=== PATIENT | male | born 1955 | race Caucasian/White ===

== ENCOUNTER → 2020-08-16 10:20 | Outpatient (BNVA) | payer OTHER, SELFPAY | PROVIDERS: PCP Family Medicine; Visit Provider Internal Medicine Cardiovascular Disease | DX: Z76.89 Persons encountering health services in other specified circumstances (principal) ==

== ENCOUNTER → 2020-10-20 10:12 | Outpatient (BNVA) | payer OTHER, SELFPAY | PROVIDERS: PCP Family Medicine; Visit Provider Student in an Organized Health Care Education/Training Program ==

== ENCOUNTER 2020-11-08 10:59 | Outpatient (REF) | payer OTHER, SELFPAY ==
--- NOTE | ~2020-11-08 | XR_ITS ---
EXAMINATION: XR KNEE, LEFT CLINICAL INFORMATION: Unilateral primary osteoarthritis of the left knee COMPARISON: None TECHNIQUE: Four views of the left knee. This includes AP upright view. FINDINGS: No fracture or subluxation. Mild narrowing of the medial and patellofemoral compartments. Tricompartmental marginal osteophytes are present. Prominent enthesophyte formation of the patella. Small to moderate suprapatellar joint effusion. Scattered vascular calcifications. XR/XR knee LT 3V IMPRESSION: Mild tricompartmental degenerative changes. Small to moderate joint effusion.
[2020-11-08 12:20] LABS: Alanine Aminotransferase 27 U/L (0-40); Albumin Level 4.3 g/dL (3.5-5.0); Alkaline Phosphatase 50 U/L (39-117); Aspartate Amino Transferase 23 U/L (5-37); Bilirubin Total 0.5 mg/dL (0.0-1.0); Blood Urea Nitrogen 18 mg/dL (9-16); Calcium 9.7 mg/dL (8.4-10.2); Estimated Glomerular Filt Rate > 60; Glucose Random 111 mg/dL (60-115); Total Protein 7.2 g/dL (6.5-8.0); Uric Acid 5.3 mg/dL (3.4-7.0)
[2020-11-08 12:33] LABS: Anion Gap 12 (12-20); Carbon Dioxide 29 mmol/L (22-29); Chloride 103 mmol/L (96-108); Potassium 4.2 mmol/L (3.3-5.1); Sodium 140 mmol/L (135-145)
== END 2020-11-08 11:00 | disposition home or self-care (01) ==
LOC: HO.LAB 10:59
PROVIDERS: PCP Physician Assistant Medical; Visit Provider Student in an Organized Health Care Education/Training Program
DX: M17.12 Unilateral primary osteoarthritis, left knee (principal); M10.9 Gout, unspecified
CPT/HCPCS: 36415; 73562; 80053; 84550

== ENCOUNTER 2020-11-17 15:00 | Outpatient (RCR) | payer OTHER, SELFPAY ==
--- NOTE | 2020-11-03 12:22 | MHC.PT.EP ---
[facility] [place] Office [place] Office [place] Office [address] Kaye Manzano [address] [phone] F: [phone] F: [phone] F: [phone] F: [phone] Physical Therapy Plan of Care Date of Evaluation: 11/03/20 Date of Surgery: Diagnosis: UNILATERAL OA LEFT KNEE Assessment: 64 YO MALE REF TO PT FOR Lt MEDIAL KNEE OA - OF IMPORTANCE, HE HAS A H/O LOW HEART RATE AND AF W PACEMAKER AND IS TAKING ELIQUIS ANTI-COAG MED. Pt HAS TENDERNESS W PALP Lt PES ANSERINE AND MEDIAL Lt KNEE Jt LINE. HE HAS TERMNAL KNEE EXTEN DEFICITS CONCHIS (Lt > Rt), DECR CONCHIS HIP AND HS FLEXIB, AND SOME WEAKNESS IN Lt QUAD/ GLUTE MM GROUPS. HE HAS (+) PELVIC ASYMM DUE TO HABITUAL WT SHIFT Rt- FUNCTIONAL LIMITATIONS INCLUDE STANDING < 10 MIN, LIMITED IN AND OUT OF CAR, DECR AMB EDUARDA AND (+) Lt KNEE SXS W QUICK CHANGE IN DIRECTION. Pt HAS REQUESTED PT 1x WEEK DUE TO COVID CONCERNS. Frequency and Duration: The patient will be seen 1x WK x 4 WKS (Pt REQUEST) Short Term Goals: DECR Lt MEDIAL KNEE PAIN TO A 2-3/10 AT MAX IN 2 WKS IMPROVE Lt>Rt HIP / HS FLEXIB AND KNEE TERMINAL EXTEN CONCHIS IN 2 WKS [place] Goals: Pt INDEP W HEP FOR ROM AND STRENGTHENING AND SELF-SX MGMT TECHN IN 4 WKS Pt REPORTS IMPROVED FUNCT MOB/ADL EDUARDA EVIDENT W IMPROVED LEFT SCORE BY 10 POINTS (39/80 AT EVAL) IN 4 WKS Treatment Plan: Modalities to reduce pain, spasms and effusion. Manual therapy to restore motion and function. Therapeutic exercise to improve strength and flexibility. Neuromuscular re-education for posture and balance. Therapeutic activities to return to functional activities of daily living. Electronically signed by: Kika Birmingham PT Please sign and return to therapist. Thank you for your referral.
--- NOTE | 2020-12-01 15:54 | MHC.PT.DC ---
[facility] Office [place] Office [place] Office [address] Kaye Manzano [address] [phone] F: [phone] F: [phone] F: [phone] F: [phone] Physical Therapy Discharge Report Diagnosis: UNILATERAL OA LEFT KNEE Date of Surgery: Date of Evaluation: 11/03/20 Date of Discharge: 12/01/20 Treatments to Date: 3 Cancellations to Date: 0 No Shows to Date: 0 Discharge Status: Achieved Goals Improved Function Independent with HEP Discharge Summary: Pt MET PT GOALS- MOST IMPORTANTLY, PAIN HAS REDUCED AND HIS FUNCTIONAL MOBILITY HAS SIGNIF IMPROVED- Pt NOTES HE SLEEPS BETTER AND HAS BEEN ABLE TO PERFORM ADLs W/O PAIN LIMITING HIM. Pt IS COMPLIANT W HEP AND IS READY TO CONT ON HIS OWN. Pt IS IN FULL AGREEMENT W D/C AT THIS TIME. Electronically signed by: Kika Birmingham, PT Please sign and return to therapist. Thank you for your referral.
== END 2020-12-01 15:55 | disposition other institution (70) ==
LOC: HO.PTCHIC 15:00
PROVIDERS: PCP Family Medicine; Visit Provider Student in an Organized Health Care Education/Training Program
DX: M17.12 Unilateral primary osteoarthritis, left knee (principal); M19.011 Primary osteoarthritis, right shoulder
CPT/HCPCS: 97110; 97162

== ENCOUNTER → 2021-02-15 10:29 | Outpatient (BNVA) | payer OTHER, SELFPAY | PROVIDERS: PCP Physician Assistant Medical; Visit Provider Internal Medicine Cardiovascular Disease ==

== ENCOUNTER → 2021-08-12 09:16 | Outpatient (REF) | payer MEDICARE, OTHER, SELFPAY ==
--- NOTE | 2021-08-12 09:26 | CA_ITS ---
Transthoracic Echocardiogram Patient (Last, First, Middle): Eric Brito M Gender: Male Date of : 1955 Age: 65 Procedure Date: 08/12/2021 Procedure Type: Transthoracic Echocardiogram Location: OP Height: 185.42 cm Weight: 137.89 kg BSA: 2.57 m2 Heart Rate: bpm BP: 134 / 85 mmHg Stain Wiper: Referring MD: Blake Villarreal MD Symptoms: I48.0 - Paroxysmal atrial fibrillation Study Quality: Fair ECG Rhythm: Sinus Conclusions: - Normal left ventricular size and systolic function. - Diastolic function is normal for age. - Normal right ventricular cavity size and systolic function. - Moderately elevated right atrial pressure. There is no evidence of pulmonary hypertension. - There is mild dilatation of the ascending aorta measuring 3.70 cm. Findings Left Ventricle Normal left ventricular size and systolic function. There is moderately increased left ventricular wall thickness. The visually estimated ejection fraction is between 55-60%. There is no evidence of regional wall motion abnormalities. Diastolic function is normal for age. Right Ventricle Normal right ventricular cavity size and systolic function. There is a pacemaker wire seen in the right ventricle. Atria The left atrium is mildly dilated. Aortic Valve Normal aortic valve structure and function. There is no aortic valve stenosis. There is no aortic valve regurgitation. Mitral Valve Normal mitral valve structure and function. There is no mitral valve regurgitation. There is no mitral valve stenosis. Pulmonic Valve The pulmonic valve is likely normal. Tricuspid Valve Normal tricuspid valve structure and function. There is no tricuspid valve regurgitation. Moderately elevated right atrial pressure. There is no evidence of pulmonary hypertension. Great Vessels There is mild dilatation of the ascending aorta measuring 3.70 cm. Venous The inferior vena cava is normal in size and collapses greater than 50% with inspiration. Pericardium/Pleural There is no evidence of pericardial effusion. Prior Study Comparison Changes noted compared to prior study dated: 02/16/2020. Moderately increased left ventricular wall thickness. Measurements 2D Linear Measurements IVSd: 1.34 0.6-0.9/0.6-1.0 cm LVIDd: 5.18 3.9-5.3/4.2-5.9 cm LVIDd Index: 2.02 2.4-3.2/2.2-3.1 cm/m2 LVIDs: 3.13 2.0-3.6 cm LVPWd: 1.34 0.7-1.1 cm Ao Root: 3.30 2.1-3.5 cm LA Diam: 4.60 2.7-3.8/3.0-4.0 cm LAIDs Index: 1.79 1.5-2.3 cm/m2 LV Mass: 360.46 67-162/88-224 g LV Mass Index: 140.26 43-95/49-115 g/m2 LVOT Diam: 2.40 3.0+(-)1.3 cm 2D Systolic Function EF 4C: 52.40 >55% EF 2C: 52.30 >55% EF BiP: 53.00 >55% Mitral Valve MV Pk E: 0.80 MV PK A: 0.70 MV Decel Time: 237.00 E/A: 1.10 E'Lateral: 11.40 E'Medial: 7.40 E/E' Med: 10.80 E/E' Lat: 7.00 PHT: 69.00 MVA PHT: 3.19 Decel [place]: 3.36 Aortic Valve AoV Pk Bharat: 1.75 AoV Mn Bharat: 1.09 AoV VTI: 0.39 AoV Pk Grad: 12.00 Aov Mn Grad: 6.00 DENA Cont.VTI: 2.87 LVOT LVOT Pk Bharat: 1.04 LVOT Mn Bharat: 0.67 LVOT VTI: 0.25 LVOT Pk Grad: 4.00 LVOT Mn Grad: 2.00 LVOT Diam: 2.40 LVOT Area: 4.52 Diastolic Function MV Pk E: 0.80 MV Pk A: 0.70 E/A: 1.10 E'Medial: 7.40 E/E' Med: 10.80 E' Laterial: 11.40 E/E' Lat: 7.00 Right Ventricle TAPSE (mm): 36.00 Tricuspid Valve TR Pk Bharat: 2.34 TR Pk Grad: 22.00 RVSP: 30.00 Great Vessels Aorta Ao Root-2D: 3.30 2.0-3.7 cm Ao Asc: 3.70 2.1-3.4 cm Pulmonary Valve PV Pk Bharat: 1.02 Peak PV Grad: 4.00 Updated in Other Vendor System with Status of Final Adal Peterson MD electronically signed on 08/14/2021 7:25:50 PM with status of Final
== END ==
LOC: HO.CARD 09:16
PROVIDERS: Visit Provider Internal Medicine Cardiovascular Disease
DX: I48.0 Paroxysmal atrial fibrillation (principal)
CPT/HCPCS: 93306

== ENCOUNTER → 2021-09-12 14:10 | Outpatient (BNVA) | payer MEDICARE, OTHER, SELFPAY | PROVIDERS: PCP Physician Assistant Medical; Visit Provider Internal Medicine Cardiovascular Disease | DX: Z45.018 Encounter for adjustment and management of other part of cardiac pacemaker (principal); I48.0 Paroxysmal atrial fibrillation | CPT/HCPCS: 99212 ==

== ENCOUNTER → 2022-03-02 09:16 | Outpatient (BNVA) | payer MEDICARE, OTHER, SELFPAY | PROVIDERS: PCP Physician Assistant Medical; Visit Provider Internal Medicine Cardiovascular Disease | DX: Z45.018 Encounter for adjustment and management of other part of cardiac pacemaker (principal); I48.0 Paroxysmal atrial fibrillation; I10 Essential (primary) hypertension | CPT/HCPCS: 93280; 99212 ==

== ENCOUNTER → 2022-08-17 12:42 | Outpatient (BNVA) | payer MEDICARE, OTHER, SELFPAY | PROVIDERS: PCP Student in an Organized Health Care Education/Training Program; Visit Provider Internal Medicine Cardiovascular Disease | DX: Z45.018 Encounter for adjustment and management of other part of cardiac pacemaker (principal); I48.0 Paroxysmal atrial fibrillation; I10 Essential (primary) hypertension | CPT/HCPCS: 93280; 99212 ==

== ENCOUNTER → 2022-08-30 11:31 | Outpatient (BNVA) | payer MEDICARE, OTHER, SELFPAY | PROVIDERS: PCP Student in an Organized Health Care Education/Training Program; Visit Provider Internal Medicine Cardiovascular Disease | DX: Z13.89 Encounter for screening for other disorder (principal) ==

== ENCOUNTER 2022-09-15 05:55 | Day surgery (SDC) | payer MEDICARE, OTHER, SELFPAY ==
--- NOTE | 2022-09-14 11:55 | HO.ANESPROP2 ---
Documented by User: Laura Mackenzie NP 09/14/22 11:57 HPI - Anesthesia Eval Consult details Narrative: 66yo M for Pacemaker Generator Change Pacer for sick sinus Eliquis for PAF PMFSH Active Problems Active Problems: All Active Problems (Updated 09/12/22 @ 12:30 by Thelma Mcnulty RN) Osteoarthritis of right shoulder (Acute) Primary osteoarthritis of left knee (Acute) Knee pain, right (Acute) HTN (hypertension) (Acute) Gout (Acute) Morbid obesity (Acute) Obstructive sleep apnea (Acute) LVH (left ventricular hypertrophy) (Acute) Cardiac pacemaker in situ (Acute) Sick sinus syndrome (Acute) Paroxysmal atrial fibrillation (Acute) Past Medical History Medical History Asthma Bladder cancer Cardiac pacemaker in situ (~2012) Depression Gout HTN (hypertension) Hx of migraines Hyperlipidemia LVH (left ventricular hypertrophy) Morbid obesity Obstructive sleep apnea On anticoagulant therapy On beta leon at home Osteoarthritis Paroxysmal atrial fibrillation (~2012) Sick sinus syndrome (~2012) Family History Family History Father CVD (cardiovascular disease) Bladder cancer Mother HTN (hypertension) Arthritis Surgical History Surgical History History of biopsy History of cardioversion History of carpal tunnel release History of permanent cardiac pacemaker placement Hx of transesophageal echocardiography (TRINIDAD) for monitoring Hx of transurethral resection of prostate Social History Social History Alcohol intake: current Alcohol intake frequency: a few times a week Patient Tobacco Use Status: Former Tobacco user Quit Date: 1979 Tobacco use type: Cigarette Cigarette Packs Per Day: 1 Cigarettes Per Day: 20.0 Years Smoked: 7 Smoked in Last 30 Days: No Use of substances other than those prescribed or required for medical reasons: No Are you DNR?: No Advance Directives: No Advance Directives Information Provided: Yes Meds Allergies Allergy/AdvReac Type Severity Reaction Status Date / Time Sulfa (Sulfonamide Allergy Unknown HIVES, Verified 09/15/22 06:39 Antibiotics) unknown [SULFA (SULFONAMIDE (childbood) ANTIBIOTICS)] Home Medications Medication Instructions Recorded Confirmed Last Taken Type gabapentin 300 mg capsule 900 mg PO BEDTIME 02/17/21 01/13/23 Unknown History finasteride 1 mg tablet 1 mg PO DAILY 03/02/22 09/15/22 Unknown History lisinopril 20 mg tablet 20 mg PO DAILY 03/02/22 09/15/22 09/14/22 History sertraline 100 mg tablet 50 mg PO DAILY 03/02/22 09/15/22 Unknown History spironolactone 100 mg tablet 100 mg PO DAILY 03/02/22 09/15/22 09/14/22 History tadalafil 5 mg tablet 5 mg PO DAILY PRN Sexual Activity 03/02/22 09/15/22 Unknown History estradiol 0.075 mg/24 hr 1 patch topical 2XW 08/17/22 09/15/22 Unknown History semiweekly transdermal patch semaglutide 0.25 mg or 0.5 mg (2 0.5 mg subcut QWEEK 08/17/22 09/15/22 Unknown History mg/1.5 mL) subcutaneous pen injector ([employer]) progesterone micronized 100 mg 1 cap PO BEDTIME 09/15/22 09/15/22 09/15/22 History capsule Exam Exam Date and Time: September 14, 2022 1155 Narrative Narrative: Pacer Interr 08/2022 Cardiac Device Check Details: Dual-chamber [place] pacemaker in place.? Programmed in DDDR at 60 beats per minute.? Atrial pacing 70% of the time.? Increasing burden of atrial fibrillation longest episode lasting 2 hours and 56 minutes.? Symptoms during that time.? Minimal ventricular pacing.? Atrial ventricular pacing thresholds adequate.? Atrial ventricular sensing is adequate.? Pacing lead impedance is stable.? Battery is at [facility] ECHO 2020 Conclusions: - Normal left ventricular size and systolic function.? - Diastolic function is normal for age.? - Normal right ventricular cavity size and systolic function.? ? - Moderately elevated right atrial pressure.? There is no? evidence of pulmonary hypertension.? - There is mild dilatation of the ascending aorta measuring 3.70 cm.? Assessment and Plan Assessment Anesthesia Assessment: Chart Reviewed Documented by User: Kinza Gilliland MD 09/15/22 08:23 PMFSH Past Medical History Medical History Asthma Bladder cancer Cardiac pacemaker in situ (~2012) Depression Gout HTN (hypertension) Hx of migraines Hyperlipidemia LVH (left ventricular hypertrophy) Morbid obesity Obstructive sleep apnea On anticoagulant therapy On beta leon at home Osteoarthritis Paroxysmal atrial fibrillation (~2012) Sick sinus syndrome (~2012) Family History Family History Father CVD (cardiovascular disease) Bladder cancer Mother HTN (hypertension) Arthritis Family history of problems with anesthesia: No Surgical History Surgical History History of biopsy History of cardioversion History of carpal tunnel release History of permanent cardiac pacemaker placement Hx of transesophageal echocardiography (TRINIDAD) for monitoring Hx of transurethral resection of prostate History of Problems with Anesthesia: No Social History Social History Alcohol intake: current Alcohol intake frequency: a few times a week Patient Tobacco Use Status: Former Tobacco user Quit Date: 1979 Tobacco use type: Cigarette Cigarette Packs Per Day: 1 Cigarettes Per Day: 20.0 Years Smoked: 7 Smoked in Last 30 Days: No Use of substances other than those prescribed or required for medical reasons: No Are you DNR?: No Advance Directives: No Advance Directives Information Provided: Yes Meds Allergies Allergy/AdvReac Type Severity Reaction Status Date / Time Sulfa (Sulfonamide Allergy Unknown HIVES, Verified 09/15/22 06:39 Antibiotics) unknown [SULFA (SULFONAMIDE (childbood) ANTIBIOTICS)] Home Medications Medication Instructions Recorded Confirmed Last Taken Type gabapentin 300 mg capsule 900 mg PO BEDTIME 10/20/20 09/15/22 Unknown History finasteride 1 mg tablet 1 mg PO DAILY 03/02/22 09/15/22 Unknown History lisinopril 20 mg tablet 20 mg PO DAILY 03/02/22 09/15/22 09/14/22 History sertraline 100 mg tablet 50 mg PO DAILY 03/02/22 09/15/22 Unknown History spironolactone 100 mg tablet 100 mg PO DAILY 03/02/22 09/15/22 09/14/22 History tadalafil 5 mg tablet 5 mg PO DAILY PRN Sexual Activity 03/02/22 09/15/22 Unknown History estradiol 0.075 mg/24 hr 1 patch topical 2XW 08/17/22 09/15/22 Unknown History semiweekly transdermal patch semaglutide 0.25 mg or 0.5 mg (2 0.5 mg subcut QWEEK 08/17/22 09/15/22 Unknown History mg/1.5 mL) subcutaneous pen injector ([employer]) progesterone micronized 100 mg 1 cap PO BEDTIME 09/15/22 09/15/22 09/15/22 History capsule Exam Height,Weight and Vital Signs: Height 6 ft 2 in Weight 137.892 kg Vital Signs Temp Pulse Resp BP Pulse Ox O2 Del Method 09/15/22 06:25 97.3 F 71 16 130/49 L 97 Room Air Airway Mallampati Class: III TM Dist: >3cm Neck ROM: Limited (Limited extension) Loose/Missing/Broken Teeth: Yes (Chip bottom front, top back left. Missing bottom left, back right) Heart: RRR with some arrhythmia Lungs: CTAB Assessment and Plan Assessment Anesthesia Assessment: Anesthesia Plan Discussed Final Anesthetic Review Family History of Problems with Anesthesia: No History of Problems with Anesthesia: No NPO: Yes ASA Class: IV Final Preanesthetic Review: No Changes in Pt Med Stat, Meds/Allgs Chart Reviewed, Consent Obtained/Reviewed and Anes Risks/Benef Reviewed Patient Risk: Intermediate Procedure Risk: Intermediate Assessment/Block/Sedation in SS: Assess/Block/Sedation-SS Anesthetic Plan Anesthetic Plan: MAC: Disposition: Standard PACU
[2022-09-15 06:21] VITALS: BMI 39.0
[2022-09-15 06:25] VITALS: BP 130/49; PULSE 71; RESP 16; TEMP 36.3; O2SAT 97
--- NOTE | 2022-09-15 07:15 | MHC.SHP ---
Pre-Procedural Eval Section A Date of Service: 09/15/22 The patient is an INPATIENT: No The History & Physical has been completed within 30 days and I have reviewed it.: Yes Section B Chief Complaint: Encounter for adjustment and management of other p Allergies: Allergies Allergy/AdvReac Type Severity Reaction Status Date / Time Sulfa (Sulfonamide Allergy Unknown HIVES, Verified 09/15/22 06:39 Antibiotics) unknown [SULFA (SULFONAMIDE (childbood) ANTIBIOTICS)] Plan I have reviewed the history and physical and performed a pertinent physical examination on my patient. No changes have occurred unless specified. Time Spent With Patient Time: Total time managing care of this patient today ____ minutes.
[2022-09-15] MEDS: Lactated Ringers 1,000 ML 100 ML IVCONT (07:17)
--- NOTE | 2022-09-15 07:30 | MHC.SHP ---
Pre-Procedural Eval Section A Date of Service: 09/15/22 The History & Physical has been completed within 30 days and I have reviewed it.: Yes Section B Chief Complaint: Encounter for adjustment and management of other p Allergies: Allergies Allergy/AdvReac Type Severity Reaction Status Date / Time Sulfa (Sulfonamide Allergy Unknown HIVES, Verified 09/15/22 06:39 Antibiotics) unknown [SULFA (SULFONAMIDE (childbood) ANTIBIOTICS)] Plan I have reviewed the history and physical and performed a pertinent physical examination on my patient. No changes have occurred unless specified. dual pacer generator change today as planned. Time Spent With Patient Time: Total time managing care of this patient today ____ minutes.
--- NOTE | 2022-09-15 07:35 | PC.NURSE ---
Patients last dose of Eliquis 09/13. Dr. Verdugo aware. Okay to proceed with procedure.
--- NOTE | 2022-09-15 08:33 | P.OP_ITS ---
Operative Note Operative Note Date of Service: 09/15/22 Narrative: Preoperative diagnosis: Pacemaker end of life Postoperative diagnosis: Same Operation: Dual-chamber pacemaker generator change Surgeon: Ghazal Verdugo MD Anesthesia: Local with sedation Specimens: None EBL: Minimal Operative findings: The generator were removed was a [employer] with serial number [id number]. Pacemaker lead parameters were in the atrial lead threshold 0.5 volts at 0.5 milliseconds with a P-wave of 3.9 mV and impedance of 390 Ohms. In the ventricular lead threshold 0.625 volts at 0.5 milliseconds with an R-wave of 8.7 mV and impedance of 460 Ohms. Patient tolerated the procedure well. Operation in detail: The patient was brought the operating room, placed supine on the operative table, anesthesia monitoring devices were placed, and the patient was gently sedated. The left infraclavicular area was then prepped and draped in a standard sterile fashion and a time-out was performed confirming the correct patient, site, and procedure. After injection of local anesthetic, a 3 cm incision was made directly over the old pacemaker generator which was palpable. This was carried down with combination of sharp dissection and minimal electrocautery to open up the capsule at the generator was within. The generator was were then removed from its pocket and the leads were taken out of the receptacles and placed directly into the new generator. These leads were then tested and were working appropriately. The pocket was then copiously irrigated with antibiotic solution and the excess wire and generator were then placed back into the pocket. The wound was then closed with a deep running 3-0 Vicryl suture followed by running 3-0 Vicryl suture and Dermabond glue on the skin. Patient tolerated the procedure well. Patient was then awoken from anesthesia and brought to the recovery room in stable condition.
[2022-09-15 08:38] VITALS: BP 116/59; PULSE 78; RESP 16; TEMP 36.4; O2SAT 98
[2022-09-15 09:03] VITALS: BP 106/57; PULSE 66; RESP 16; TEMP 36.8; O2SAT 95
== END 2022-09-15 10:00 | disposition home or self-care (01) ==
PROVIDERS: PCP Student in an Organized Health Care Education/Training Program; Visit Provider Surgery
PROC: (CPT 33228; principal; 2022-09-15 07:30)
DX: Z45.018 Encounter for adjustment and management of other part of cardiac pacemaker (principal); R42 Dizziness and giddiness; I48.0 Paroxysmal atrial fibrillation; I51.7 Cardiomegaly; I49.5 Sick sinus syndrome; I10 Essential (primary) hypertension; E78.5 Hyperlipidemia, unspecified; G47.33 Obstructive sleep apnea (adult) (pediatric); J45.909 Unspecified asthma, uncomplicated; E66.01 Morbid (severe) obesity due to excess calories; Z68.39 Body mass index [BMI] 39.0-39.9, adult; Z79.01 Long term (current) use of anticoagulants; Z99.89 Dependence on other enabling machines and devices; Z79.899 Other long term (current) drug therapy; Z88.2 Allergy status to sulfonamides; Z85.51 Personal history of malignant neoplasm of bladder; Z87.891 Personal history of nicotine dependence
CPT/HCPCS: 33228; C1785; J0690; J2250; J3010; J3370

== ENCOUNTER → 2022-09-29 09:36 | Outpatient (BNVA) | payer OTHER, SELFPAY | PROVIDERS: PCP Student in an Organized Health Care Education/Training Program; Visit Provider Surgery | DX: Z13.89 Encounter for screening for other disorder (principal) ==

== ENCOUNTER 2022-10-19 09:38 | Inpatient (IN) | payer MEDICARE, SELFPAY ==
[2022-10-19] VITALS (7 sets, daily range): BP systolic 99–121; BP diastolic 42–57; PULSE 54–61; RESP 18–20; TEMP 36.3–36.8; O2SAT 94–100; BMI 38.5
--- NOTE | ~2022-10-19 | XR_ITS ---
EXAMINATION: XR CHEST CLINICAL INFORMATION: Possible infection COMPARISON: October 04, 2012 TECHNIQUE: AP portable view of the chest was obtained. FINDINGS: There is no evidence of acute parenchymal disease, pneumothorax, or pleural effusion. Heart normal size. No evidence of pulmonary edema. Pacemaker seen in place. XR/XR chest 1V IMPRESSION: No acute disease.
--- NOTE | ~2022-10-19 | CT_ITS ---
CT LUMBAR SPINE WITHOUT CONTRAST CLINICAL INFORMATION: Back pain. COMPARISON: None TECHNIQUE: A multidetector CT acquisition of the lumbar spine is obtained without contrast. This CT examination was performed using dose optimization techniques as appropriate, variously including the following: *Automated exposure control *Adjustment of mA and/or kV according to patient size (this includes techniques or standardized protocols for targeted exams where dose is matched to indication/reason for exam; i.e. extremities or head) *Use of iterative reconstruction technique FINDINGS: There is grade 2 spondylolytic anterolisthesis of L5 on S1 in the setting of chronic bilateral L5 pars defects. Lumbar alignment is otherwise maintained. The vertebral body heights are preserved. There is moderate to severe disc volume loss and vacuum phenomenon at L5-S1. Multilevel endplate osteophytes. No acute fractures and no acute subluxations. Hypertrophic ankylosis across the SI joints bilaterally. No suspicious intraosseous lesions. There are left-sided nephrectomy changes and there are multiple pathologic appearing enlarged lymph nodes within the retroperitoneum that should be correlated with prior abdominal imaging if available. If no prior imaging is available, consider PET/CT for further assessment as metastatic adenopathy is not excluded. There is aortoiliac atherosclerotic calcification. There is sigmoid diverticulosis. At T12-L1, there is a shallow left paracentral disc osteophyte protrusion that mildly indents the left ventral thecal sac. At L1-L2, there is a small annular disc bulge and there is mild bilateral facet arthropathy without central canal stenosis nor significant foraminal stenosis. At L2-L3, there is a diffuse annular disc bulge and there is moderate bilateral facet arthropathy and ligamentum flavum thickening resulting in suspected mild to moderate central canal stenosis, bilateral subarticular zone stenosis, and mild bilateral foraminal encroachment. At L3-L4, there is a diffuse annular disc bulge and there is severe bilateral facet arthropathy and ligamentum flavum thickening. Findings in concert result in suspected mild to moderate central canal stenosis, bilateral subarticular zone stenosis, and mild bilateral foraminal encroachment. At L4-L5, there is a diffuse annular disc bulge and there is severe bilateral facet arthropathy and ligamentum flavum thickening. Vacuum phenomenon within the facet joints bilaterally and the right ligamentum flavum. Findings in concert result in suspected mild narrowing of the central canal and mild to moderate bilateral foraminal encroachment. At L5-S1, there is grade 2 spondylolytic anterolisthesis of L5 on S1 in the setting of chronic bilateral L5 pars defects that along with uncovered disc osteophyte results in severe bilateral foraminal stenosis at L5-S1 with significant compression of the exiting L5 nerve roots bilaterally. CT/CT lumbar spine wo IV con IMPRESSION: * There are left-sided nephrectomy changes and there are multiple pathologic appearing enlarged lymph nodes within the retroperitoneum that should be correlated with prior abdominal imaging if available. If no prior imaging is available, consider PET/CT for further assessment as metastatic adenopathy is not excluded. * At L5-S1, there is grade 2 spondylolytic anterolisthesis of L5 on S1 in the setting of chronic bilateral L5 pars defects that along with uncovered disc osteophyte results in severe bilateral foraminal stenosis at L5-S1 with significant compression of the exiting L5 nerve roots bilaterally. * At L4-L5, multifactorial degenerative changes result in mild to moderate bilateral foraminal encroachment. Advanced bilateral hypertrophic facet arthropathy and facet vacuum phenomenon bilaterally at this level. * At L3-L4, multifactorial degenerative changes result in suspected at least mild to moderate central canal stenosis, bilateral subarticular zone stenosis, and mild bilateral foraminal encroachment. Advanced bilateral hypertrophic facet arthropathy at this level. * At L2-L3, multifactorial degenerative changes result in suspected at least mild to moderate central canal stenosis, bilateral subarticular zone stenosis, and mild bilateral foraminal encroachment. * MRI would be more sensitive if not contraindicated given the degree of artifact on CT.
--- NOTE | 2022-10-19 10:25 | ED.BACK ---
HPI - Back Pain/Injury General Chief Complaint: Back Pain/Injury Stated Complaint: R BACK DOWN LEG PAIN SINCE LAST NIGHT Time Seen by Provider: 10/19/22 10:08 Source: patient Mode of arrival: EMS Limitations: no limitations History of Present Illness HPI Narrative: 66-year-old male presents with low back pain. The pain is chronic in nature but exacerbated over the last 3 days. The pain is described as severe. It is sharp. It radiates to the right lower extremity. Patient has chronic lateral bilateral leg numbness but that has not changed. He denies any focal weakness. Patient denies any new falls, twists, heavy lifting, saddle paresthesia, loss of bowel or bladder control. Denies intravenous drug abuse or fevers. Denies any urinary frequency, urgency, dysuria, hematuria. Related Data Home Medications Medication Instructions Recorded Confirmed gabapentin 300 mg capsule 900 mg PO BEDTIME 10/20/20 09/29/22 finasteride 1 mg tablet 1 mg PO DAILY 03/02/22 09/29/22 lisinopril 20 mg tablet 20 mg PO DAILY 03/02/22 09/29/22 sertraline 100 mg tablet 50 mg PO DAILY 03/02/22 09/29/22 estradiol 0.075 mg/24 hr 1 patch topical 2XW 08/17/22 09/29/22 semiweekly transdermal patch semaglutide 0.25 mg or 0.5 mg (2 0.5 mg subcut QWEEK 08/17/22 09/29/22 mg/1.5 mL) subcutaneous pen injector (Ozempic) progesterone micronized 100 mg 1 cap PO BEDTIME 09/15/22 09/29/22 capsule lidocaine-prilocaine 2.5 %-2.5 % 1 appl topical TID 10/19/22 topical cream oxycodone 5 mg tablet 10 mg PO Q8H PRN Severe Pain 10/19/22 (Scale Score 7-10) spironolactone 50 mg tablet 50 mg PO DAILY 10/19/22 Previous Rx's Medication Instructions Recorded allopurinol 300 mg tablet 300 mg PO DAILY #90 tabs 03/25/21 metoprolol succinate 50 mg 50 mg PO DAILY #90 tabs 10/10/21 tablet,extended release 24 hr apixaban 5 mg tablet 5 mg PO BID 90 days #180 tabs 11/16/21 simvastatin 10 mg tablet 10 mg PO BEDTIME #90 tabs 08/17/22 Allergies Allergy/AdvReac Type Severity Reaction Status Date / Time Sulfa (Sulfonamide Allergy Unknown HIVES, Verified 09/29/22 10:13 Antibiotics) unknown [SULFA (SULFONAMIDE (childbood) ANTIBIOTICS)] Review of Systems Review of Systems: CONSTITUTIONAL: Denies weight loss, fever and chills. HEENT: Denies changes in vision and hearing. RESPIRATORY: Denies SOB and cough. CV: Denies palpitations no CP. GI: Denies abdominal pain, nausea, vomiting and diarrhea. : Denies dysuria and urinary frequency. MSK: Denies myalgia and joint pain. Positive back pain SKIN: Denies rash and pruritus. NEUROLOGICAL: Denies headache and syncope. PSYCHIATRIC: Denies recent changes in mood. Denies anxiety and depression. All other ROS are negative unless in HPI [facility] Past Medical History Medical History Asthma Bladder cancer Cardiac pacemaker in situ (~2012) Depression Gout HTN (hypertension) Hx of migraines Hyperlipidemia LVH (left ventricular hypertrophy) Morbid obesity Obstructive sleep apnea On anticoagulant therapy On beta leon at home Osteoarthritis Paroxysmal atrial fibrillation (~2012) Sick sinus syndrome (~2012) Surgical History History of biopsy History of cardioversion History of carpal tunnel release History of permanent cardiac pacemaker placement Hx of transesophageal echocardiography (TRINIDAD) for monitoring Hx of transurethral resection of prostate Family History Family History Father CVD (cardiovascular disease) Bladder cancer Mother HTN (hypertension) Arthritis Social History Social History Alcohol intake: current Alcohol intake frequency: does not drink Patient Tobacco Use Status: Former Tobacco user Quit Date: 1979 Tobacco use type: Cigarette Cigarette Packs Per Day: 1 Cigarettes Per Day: 20.0 Years Smoked: 7 Smoked in Last 30 Days: No Advance Directives: Yes Advance Directives Information Provided: No Advance Directives on File: No Physical Exam Vital Signs: Vital Signs: Last Vital Signs Temp 98.3 F 10/19/22 09:57 Pulse 54 10/19/22 12:04 Resp 20 10/19/22 12:04 BP 117/42 L 10/19/22 12:04 Pulse Ox 100 10/19/22 10:00 O2 Del Method 10/19/22 10:00 BMI result Body Mass Index 38.5 GEN: Well developed, no acute distress, alert, oriented HEENT: Normocephalic, atraumatic, normal external ears, nose appears normal, no oropharyngeal edema or exudates Eyes: Normal to appearance Neck: Supple, no lymphadenopathy Respiratory: Talks in complete sentences, no respiratory distress, clear to auscultation bilaterally Cardiovascular: Regular rate and rhythm, no murmurs rubs or gallops Abdomen: Soft, nontender, nondistended, no guarding, no rebound Back: No CVA tenderness Extremities: No clubbing cyanosis or edema Neurologic: No focal neurologic deficits, cranial nerves 2-12 intact, strength is 5/5 bilaterally, gait normal Skin: No rash Course Course Course Narrative: 66-year-old male presents with low back pain. Brought in by EMS. The pain is right-sided. Radiates down his right leg suggestive of a lumbar radiculopathy. He has no focal weakness. He does have a slightly positive right straight leg raise, negative on the left. Patient does not have any saddle paresthesia, loss of bowel or bladder control suggest acute cauda equina syndrome. He has no midline tenderness, deformity, fever intravenous drug use to suggest epidural abscess. Suspect pinched nerve causing his radicular symptoms. Will treat with intravenous steroids, Toradol, muscle relaxants re-evaluate the patient. He can likely follow up as an outpatient with MRI if needed Reevaluation(s) Reevaluation #1: Patient with continued intractable back pain. Will try Dilaudid. Will order labs COVID swab in the eventuality patient may require hospitalization for pain management. Time: 11:53 Reevaluation #2: Patient is feeling much better at this time. Will try to ambulate the patient to see the appropriateness for discharge versus short-term rehabilitation. Reevaluation #3: Patient has no elevated white blood cell count, left shift as well as hyperkalemia of unclear etiology. Will check an EKG to make sure there are no EKG changes. Will also get urinalysis to rule out UTI. Will order a chest x-ray although cardiopulmonary exam was unremarkable. Time: 13:36 Additional Reevaluation(s): Treating hyperkalemia at this time with albuterol, his potassium binders, dextrose with insulin. Will talk with hospitalist regarding admission. This 240, will admit patient to the imaging care unit. He has acute kidney injury with hyperkalemia which is currently in the process of being treated. He also has an elevated white blood cell count which could be a leukemoid reaction. He has intractable pain with radiculopathy. Consultations Consultation #1: Hospitalist Time: 14:14 Medications Administered Discontinued Medications Generic Name Dose Route Start Last Admin Trade Name Crowq PRN Reason Stop Dose Admin Acetaminophen 975 mg 10/19/22 10:20 10/19/22 10:41 Acetaminophen 325 Mg Tablet PO 10/19/22 10:21 975 mg ONCE ONE Administration Cyclobenzaprine HCl 10 mg 10/19/22 10:20 10/19/22 10:41 Cyclobenzaprine Hcl 10 Mg Tablet PO 10/19/22 10:21 10 mg ONCE ONE Administration Dexamethasone Sodium Phosphate 10 mg 10/19/22 10:20 10/19/22 10:41 Dexamethasone Sod Phosphate 10 Mg/Ml Vial IVPUSH 10/19/22 10:21 10 mg ONCE ONE Administration Hydromorphone HCl 1 mg 10/19/22 11:52 10/19/22 12:03 Hydromorphone Hcl 1 Mg/Ml Syringe IVPUSH 10/19/22 11:53 1 mg ONCE ONE Administration Protocol Ketorolac Tromethamine 15 mg 10/19/22 10:20 10/19/22 10:40 Ketorolac Tromethamine 15 Mg/Ml Vial IVPUSH 10/19/22 10:21 15 mg ONCE ONE Administration Medical Decision Making Medical Decision Making MDM Narrative: 66-year-old male with right lumbar radiculopathy. This is acute on chronic. This is nontraumatic. There is no evidence of acute cauda equina syndrome or epidural abscess. There is no emergent indication for MRI at this time. Doubt x-ray will be of assistance at this time. Will provide patient with appropriate analgesics, muscle relaxer and re-evaluate the patient. Differential Diagnosis Differential Diagnoses: The differential diagnosis associated with the presentation includes (Lumbar radiculopathy, pinched nerve, spinal stenosis, epidural abscess, cauda equina syndrome) Lumbar radiculopathy Admission/Observation Consideration of admission/observation: Escalation of care including admission/observation considered Lab Data 10/19/22 12:42 10/19/22 12:42 Labs: Lab Results 10/19/22 10/19/22 10/19/22 Range/Units 12:42 12:42 12:42 WBC 12.5 H (4.8-10.8) X10*3/uL RBC 3.25 L (4.60-5.80) X10*6/uL Hgb 10.3 L (14.0-18.0) g/dl Hct 32.0 L (42.0-52.0) % MCV 98.5 H (80.0-98.0) fL MCH 31.7 (27.0-33.0) pg MCHC 32.2 (31.0-36.0) g/dl RDW 13.5 (11.0-16.0) % Plt Count 296 (160-400) X10*3/uL MPV 10.6 (9.4-12.4) fL Immature Gran % (Auto) 0.4 (0.0-0.4) % Neut % (Auto) 88.4 H (45-73) % Lymph % (Auto) 6.2 L (20-40) % [place] % (Auto) 2.3 (2-11) % Eos % (Auto) 2.5 (0-4) % Baso % (Auto) 0.2 (0-2) % Lymph # (Auto) 0.8 L (1.2-4.9) X10*3/uL [place] # (Auto) 0.3 (0.1-1.2) X10*3/uL Eos # (Auto) 0.3 (0.0-0.4) X10*3/uL Baso # (Auto) 0.0 (0.0-0.2) X10*3/uL Abs Immat Gran (auto) 0.05 H (0.00-0.03) X10*3/uL Absolute Neuts (auto) 11.1 H (2.0-8.3) x10*3/uL Absolute Nucleated RBC 0.000 (0.0-0.012) X10*3/uL Nucleated RBC % (auto) 0.0 (0.0-0.2) /100WBC Sodium 138 (135-145) mmol/L Potassium 5.8 H D (3.3-5.1) mmol/L Chloride 110 H (96-108) mmol/L Carbon Dioxide 21 L (22-29) mmol/L Anion Gap 13 (12-20) BUN 28 H (9-16) mg/dL Creatinine 1.89 H (0.5-1.4) mg/dL Estim Creat Clear Calc 55.6 Estimated GFR 36 Random Glucose 117 H (60-115) mg/dL Calcium 9.7 (8.4-10.2) mg/dL Urine Color Urine Appearance Urine pH (5.0-9.0) Ur Specific [place] (1.005-1.025) Urine Protein (Neg-Trace) mg/dL Urine Glucose (UA) (Negative) mg/dL Urine Ketones (Negative) mg/dL Urine Blood (Negative) Urine Nitrite (Negative) Ur Leukocyte Esterase (Negative) COVID-19 (LUIS ENRIQUE) Negative (Negative) COVID-19 Clin Com See Note 10/19/22 Range/Units 14:05 WBC (4.8-10.8) X10*3/uL RBC (4.60-5.80) X10*6/uL Hgb (14.0-18.0) g/dl Hct (42.0-52.0) % MCV (80.0-98.0) fL MCH (27.0-33.0) pg MCHC (31.0-36.0) g/dl RDW (11.0-16.0) % Plt Count (160-400) X10*3/uL MPV (9.4-12.4) fL Immature Gran % (Auto) (0.0-0.4) % Neut % (Auto) (45-73) % Lymph % (Auto) (20-40) % [place] % (Auto) (2-11) % Eos % (Auto) (0-4) % Baso % (Auto) (0-2) % Lymph # (Auto) (1.2-4.9) X10*3/uL [place] # (Auto) (0.1-1.2) X10*3/uL Eos # (Auto) (0.0-0.4) X10*3/uL Baso # (Auto) (0.0-0.2) X10*3/uL Abs Immat Gran (auto) (0.00-0.03) X10*3/uL Absolute Neuts (auto) (2.0-8.3) x10*3/uL Absolute Nucleated RBC (0.0-0.012) X10*3/uL Nucleated RBC % (auto) (0.0-0.2) /100WBC Sodium (135-145) mmol/L Potassium (3.3-5.1) mmol/L Chloride (96-108) mmol/L Carbon Dioxide (22-29) mmol/L Anion Gap (12-20) BUN (9-16) mg/dL Creatinine (0.5-1.4) mg/dL Estim Creat Clear Calc Estimated GFR Random Glucose (60-115) mg/dL Calcium (8.4-10.2) mg/dL Urine Color Yellow Urine Appearance Clear Urine pH 5.5 (5.0-9.0) Ur Specific [place] 1.020 (1.005-1.025) Urine Protein Negative (Neg-Trace) mg/dL Urine Glucose (UA) Negative (Negative) mg/dL Urine Ketones Negative (Negative) mg/dL Urine Blood Negative (Negative) Urine Nitrite Negative (Negative) Ur Leukocyte Esterase Small (1+) H (Negative) COVID-19 (LUIS ENRIQUE) (Negative) COVID-19 Clin Com Independent Interpretation I performed an independent interpretation of an: EKG (Atrial paced rhythm heart rate 68, PVCs, no acute ST elevations depressions) External Record Review External record reviewed: Outpatient record (Rheumatology note from 2020 cardiology note from 08/24) Tests considered The following testing was considered but not selected: X-ray, CT scan, MRI Prescription Management I considered prescription management with: Pain Medication Chronic Conditions Patient?s care impacted by: Hypertension Critical Care Time Critical Care Time Critical Care Time: Yes Total Critical Care Time: 35 Attestation: At least 35 minutes of critical care time was provided with the diagnoses of acute kidney injury with associated with hyperkalemia which can cause potentially dangerous cardiac dysrhythmia. This was outside the scope of procedures. This included bedside treatment, documentation, review of medical records, consultation with hospital doctors. Discharge Plan Discharge Clinical Impression: Lumbar radiculopathy, Leukocytosis, JUANY (acute kidney injury), Acute hyperkalemia Patient Disposition: Admitted As Inpatient
[2022-10-19] MEDS: Ketorolac Tromethamine 15 MG/ML VIAL IVPUSH (10:40)
[2022-10-19] MEDS: Acetaminophen 325 MG TABLET 975 MG PO (10:41)
[2022-10-19] MEDS: dexAMETHasone sod phosphate 10 MG/ML VIAL IVPUSH (10:41)
[2022-10-19] MEDS: Cyclobenzaprine HCl 10 MG TABLET PO ×2 (10:41→23:42)
--- NOTE | 2022-10-19 11:06 | PC.NURSE ---
Medicated as charted
[2022-10-19] MEDS: HYDROmorphone HCl 1 MG/ML SYRINGE IVPUSH (12:03)
--- NOTE | 2022-10-19 12:05 | PC.NURSE ---
No relief s/p meds given, Dilaudid administered. Awaiting labs work
[2022-10-19 12:48] LABS: MANUAL DIFF FLAG NO
[2022-10-19 12:50] LABS: Basophils Percent Auto 0.2 % (0-2); Eosinophils Absolute Auto 0.3 X10*3/uL (0.0-0.4); Eosinophils Percent Auto 2.5 % (0-4); Hemoglobin 10.3 g/dl (14.0-18.0); Imm Gran Abs Auto 0.05 X10*3/uL (0.00-0.03); Imm Gran Pct Auto 0.4 % (0.0-0.4); Lymphocytes Absolute Auto 0.8 X10*3/uL (1.2-4.9); Lymphocytes Percent Auto 6.2 % (20-40); Mean Corpuscular HGB Conc 32.2 g/dl (31.0-36.0); Mean Corpuscular Hemoglobin 31.7 pg (27.0-33.0); Mean Corpuscular Volume 98.5 fL (80.0-98.0); Mean Platelet Volume 10.6 fL (9.4-12.4); Monocytes Absolute Auto 0.3 X10*3/uL (0.1-1.2); Monocytes Percent Auto 2.3 % (2-11); Neutrophils Absolute Auto 11.1 x10*3/uL (2.0-8.3); Neutrophils Percent Auto 88.4 % (45-73); Platelet Count 296 X10*3/uL (160-400); Red Blood Count 3.25 X10*6/uL (4.60-5.80); Red Cell Distribution Width 13.5 % (11.0-16.0); White Blood Count 12.5 X10*3/uL (4.8-10.8)
[2022-10-19 13:03] LABS: Anion Gap 13 (12-20); Blood Urea Nitrogen 28 mg/dL (9-16); Calcium 9.7 mg/dL (8.4-10.2); Carbon Dioxide 21 mmol/L (22-29); Chloride 110 mmol/L (96-108); Creatinine Clr Calc Pharmacy 55.6; Estimated Glomerular Filt Rate 36; Glucose Random 117 mg/dL (60-115); Potassium 5.8 mmol/L (3.3-5.1); Sodium 138 mmol/L (135-145)
[2022-10-19 13:07] LABS: COVID-19 Test Negative (Negative); IDNOW Serial# BCCEAD1C
--- NOTE | 2022-10-19 13:35 | ECG_ITS ---
Test Reason : HYPERKALEMIA Blood Pressure : / mmHG Vent. Rate : 068 BPM Atrial Rate : 068 BPM P-R Int : 208 ms QRS Dur : 096 ms QT Int : 378 ms P-R-T Axes : 002 026 058 degrees QTc Int : 401 ms Atrial-paced rhythm with occasional Premature ventricular complexes Abnormal ECG When compared with ECG of 27-JUN-2013 12:15, Premature ventricular complexes are now Present T wave inversion no longer evident in Inferior leads T wave inversion no longer evident in Lateral leads Referred By: Red Wong Electronically Signed By:Adal Peterson
--- NOTE | 2022-10-19 14:05 | PC.NURSE ---
Pt ambulatory to bathroom, plan to obtain UA specimen. Pt reports pain has improved
[2022-10-19 14:15] LABS: Appearance Urine Clear; Color Urine Yellow; Glucose Urine UA Negative (Negative); Leukocyte Esterase Urine Small (1+) (Negative); Nitrite Urine Negative (Negative); PH 5.5 (5.0-9.0); UMIC TRIGGER UACC YES; Urine Blood Negative (Negative); Urine Ketones Negative (Negative); Urine Protein Negative (Neg-Trace)
[2022-10-19 14:48] LABS: Bacteria Urine Trace (None Seen); RBC Urine 0-2 /HPF (0-2); Squamous Epithelial Cell Urine 0-2 /HPF (0-2); UACC Culture Trigger YES
--- NOTE | 2022-10-19 15:07 | PHA.MEDREC ---
Pharmacy Consult ? Medication Reconciliation Pharmacy has completed the medication reconciliation.
--- NOTE | 2022-10-19 15:07 | PC.NURSE ---
report received from Berta LOPEZ. Called respiratory for duoneb no answer at this time
[2022-10-19] MEDS: Insulin Lispro 100 UNIT/ML 3 ML VIAL 10 UNIT SUBCUT (15:08)
[2022-10-19] MEDS: Sodium Zirconium Cyclosilicate 5 GM POWD.PACK PO (15:08)
--- NOTE | 2022-10-19 15:11 | P.HPHOSP_ITS ---
History of Present Illness Date of Service: 10/19/22 Attending physician on admission: [facility] Chief Complaint: Lower back pain Pt is a 66-year-old assigned male at on hormone replacement therapy with a PMH significant for?renal cancer with recent left nephrectomy and orchiectomy, asthma, bladder cancer, paroxysmal AFib, sick sinus syndrome with cardiac pacemaker in-situ, HTN, HLD, depression, gout, morbid obesity who presents to the ED with?lower back pain. Patient has chronic back pain, however has been experiencing severe lower back pain the past 3 days. Patient denies any trauma to the area, heavy lifting, excessive movement. In the ED patient was treated with Toradol to little effect, then treated with IV steroids, cyclobenzaprine, and hydromorphone which helped. Incidental findings on labs showed an elevated WBC of 12.5, hyper kalemia of 5.8, and elevated creatinine of 1.89 (creatinine of 1.5 one week ago at [facility]). 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 Twin removed 2 days ago Patient denies fever, chills, vomiting. Mild chronic nausea, no worse than before. Mild abdominal pain at the incision site. Patient also states she has a history of hyperkalemia, most recently 3 months ago. PCP told her to stop eating daily bananas, repeat labs were WNL. Patient then presumed daily banana along with a multivitamin. Patient denies chest pain/pressure, palpitations. Denies shortness of breath. In the ED patient was afebrile with slightly low BP of 117/42. Labs were signifi cant for leukocytosis of 12.5, H&H of 10.3/32.0, hyperkalemia of 5.8, chloride of 110, creatinine elevated at 1.89. UA negative for UT. CXR showed no acute cardiopulmonary process. EKG demonstrated atrial paced rhythm with no evidence of ST elevations or depressions. Pt was treated with ketorolac, cyclobenzaprine, dexamethasone hydromorphone, lokelma, insulin, and dextrose. Pt will be admitted to the hospital for treatment of hyperkalemia, JUANY and evaluation of leukocytosis. Review of Systems Review of Systems: Severe lower back pain radiating to right lower extremity Denies chest pain/pressure, palpitations No shortness of breath Mild lower left abdominal pain at incision sites Denies acute fever, chills, nausea, vomiting Yes all other systems are reviewed and are negative [facility] Medical History Asthma Bladder cancer Cardiac pacemaker in situ (~2012) Depression Gout HTN (hypertension) Hx of migraines Hyperlipidemia LVH (left ventricular hypertrophy) Morbid obesity Obstructive sleep apnea On anticoagulant therapy On beta leon at home Osteoarthritis Paroxysmal atrial fibrillation (~2012) Sick sinus syndrome (~2012) Family History Father CVD (cardiovascular disease) Bladder cancer Mother HTN (hypertension) Arthritis Surgical History History of biopsy History of cardioversion History of carpal tunnel release History of permanent cardiac pacemaker placement Hx of transesophageal echocardiography (TRINIDAD) for monitoring Hx of transurethral resection of prostate Social History Alcohol intake: current Alcohol intake frequency: does not drink Patient Tobacco Use Status: Former Tobacco user Quit Date: 1979 Tobacco use type: Cigarette Cigarette Packs Per Day: 1 Cigarettes Per Day: 20.0 Years Smoked: 7 Smoked in Last 30 Days: No Advance Directives: Yes Advance Directives Information Provided: No Advance Directives on File: No Meds Allergies Allergy/AdvReac Type Severity Reaction Status Date / Time Sulfa (Sulfonamide Allergy Unknown HIVES, Verified 09/29/22 10:13 Antibiotics) unknown [SULFA (SULFONAMIDE (childbood) ANTIBIOTICS)] Active Medications: Current Medications Pharmacy Consult (Consult Rx Perform Med Rec) 1 each MISCELLANE ONCE PRN PRN Reason: Consult order Home Medications Medication Instructions Recorded Confirmed Last Taken Type finasteride 1 mg tablet 1 mg PO DAILY 03/02/22 10/19/22 Unknown History lisinopril 20 mg tablet 20 mg PO DAILY 03/02/22 10/19/22 09/14/22 History sertraline 100 mg tablet 50 mg PO DAILY 03/02/22 10/19/22 Unknown History estradiol 0.075 mg/24 hr 1 patch topical TUSA 08/17/22 10/19/22 Unknown History semiweekly transdermal patch semaglutide 0.25 mg or 0.5 mg (2 0.5 mg subcut TU 08/17/22 10/19/22 Unknown History mg/1.5 mL) subcutaneous pen injector (Ozempic) progesterone micronized 100 mg 1 cap PO BEDTIME 09/15/22 10/19/22 09/15/22 History capsule apixaban 5 mg tablet 5 mg PO BID 10/19/22 10/19/22 Unknown History cyclobenzaprine 10 mg tablet 10 mg PO TID PRN Muscle Spasm 10/19/22 10/19/22 Unknown History gabapentin 400 mg capsule 400 mg PO BID PRN Pain 10/19/22 10/19/22 Unknown History lidocaine-prilocaine 2.5 %-2.5 % 1 appl topical TID 10/19/22 10/19/22 Unknown History topical cream spironolactone 50 mg tablet 100 mg PO DAILY 10/19/22 10/19/22 Unknown History Physical Exam Vital Signs and Narrative: Vital Signs: Last Vital Signs Temp 98.3 F 10/19/22 09:57 Pulse 54 10/19/22 12:04 Resp 20 10/19/22 12:04 BP 117/42 L 10/19/22 12:04 Pulse Ox 100 10/19/22 10:00 O2 Del Method 10/19/22 10:00 BMI result Body Mass Index 38.5 Constitutional: Alert, in no acute distress. Mental Status: Oriented to person, place and time. Eyes: Pupils are equal, round, and reactive to light. Ear, Nose, and Throat: Oropharynx clear, mucous membranes moist. Ears and nose w ithout deformities. Trachea midline. Respiratory: Clear to auscultation bilaterally. No wheezing, rales, or rhonchi. Cardiovascular: S1, S2 regular. No murmurs, rubs, or gallops. Gastrointestinal: Abdomen soft, non-tender, non-distended. Normal bowel sounds. Incision wound on lower left abdomen. Clean, dry, non-erythematous, covered in steri-strips. Neurologic: Cranial nerves II-XII are grossly intact. No focal neurological deficits. Moves all extremities spontaneously. Skin: No rashes or lesions noted. Musculoskeletal: No cyanosis or clubbing. Extremities: No edema. Psychiatric: Normal mood and affect. Results Labs 10/19/22 12:42 10/19/22 12:42 Labs: Laboratory Results - last 24 hr 10/19/22 10/19/22 10/19/22 12:42 12:42 12:42 MCV 98.5 H MCH 31.7 MCHC 32.2 RDW 13.5 Plt Count 296 MPV 10.6 Immature Gran % (Auto) 0.4 Neut % (Auto) 88.4 H Lymph % (Auto) 6.2 L [place] % (Auto) 2.3 Eos % (Auto) 2.5 Baso % (Auto) 0.2 Lymph # (Auto) 0.8 L [place] # (Auto) 0.3 Eos # (Auto) 0.3 Baso # (Auto) 0.0 Abs Immat Gran (auto) 0.05 H Absolute Neuts (auto) 11.1 H Absolute Nucleated RBC 0.000 Nucleated RBC % (auto) 0.0 Anion Gap 13 Estim Creat Clear Calc 55.6 Estimated GFR 36 Random Glucose 117 H Calcium 9.7 Urine Color Urine Appearance Urine pH Ur Specific [place] Urine Protein Urine Glucose (UA) Urine Ketones Urine Blood Urine Nitrite Ur Leukocyte Esterase Urine RBC Urine WBC Ur Squamous Epith Cells Urine Bacteria Hyaline Casts COVID-19 (LUIS ENRIQUE) Negative COVID-19 Clin Com See Note 10/19/22 14:05 MCV MCH MCHC RDW Plt Count MPV Immature Gran % (Auto) Neut % (Auto) Lymph % (Auto) [place] % (Auto) Eos % (Auto) Baso % (Auto) Lymph # (Auto) [place] # (Auto) Eos # (Auto) Baso # (Auto) Abs Immat Gran (auto) Absolute Neuts (auto) Absolute Nucleated RBC Nucleated RBC % (auto) Anion Gap Estim Creat Clear Calc Estimated GFR Random Glucose Calcium Urine Color Yellow Urine Appearance Clear Urine pH 5.5 Ur Specific [place] 1.020 Urine Protein Negative Urine Glucose (UA) Negative Urine Ketones Negative Urine Blood Negative Urine Nitrite Negative Ur Leukocyte Esterase Small (1+) H Urine RBC 0-2 Urine WBC 6-10 H Ur Squamous Epith Cells 0-2 Urine Bacteria Trace Hyaline Casts 3-5 COVID-19 (LUIS ENRIQUE) COVID-19 Clin Com Assessment and Plan (1) Lumbar radiculopathy: Status: Acute (2) Leukocytosis: Status: Acute (3) JUANY (acute kidney injury): Status: Acute (4) Acute hyperkalemia: Status: Acute Plan Hyperkalemia Pt's potassium 5.8 at time of presentation Patient received insulin, dextrose, Lokelma, albuterol Follow BMP JUANY Creatinine 1.89 at time of presentation, up from 1.5 Pt had left nephrectomy last week IVF Follow BMP Leukocytosis Patient WBC elevated at 12.5 Unclear etiology Patient has no clear source of infection: Patient afebrile, denies fever, chills, recent surgical incision wound nondraining, non erythematous Follow CBC Lumbar radiculopathy Continue cyclobenzaprine Pain management HTN Hold lisinopril due to JUANY Monitor BP BPH Continue finasteride Paroxysmal AFib Patient with implantable cardiac pacemaker Continue metoprolol, Eliquis Gout Continue allopurinol Full Code Attending:?Dr. Rodriguez DVT Prophylaxis: On Eliquis Pt will require a hospitalization of at least two nights for treatment of?hy perkalemia and JUANY in setting of recent nephrectomy.. Time Spent With Patient Time: Total time managing care of this patient today ____ minutes. Quality Stroke Does the patient have a stroke diagnosis?: No VTE Prior VTE?: No VTE Risk Level:: Medical - moderate - high VTE Device Contraindication: Treatment Not Indicated VTE Drug Contraindication: N/A - Med Ordered
[2022-10-19] MEDS: Albuterol Sulfate (0.083%) 2.5 MG/3 ML VIAL.NEB 7.5 MG INHALE (15:28)
--- NOTE | 2022-10-19 16:45 | PC.NURSE ---
ASSUMED CARE OF THIS PT AT 1630. PT REPORTS 3/10 R LOWER BACK PAIN. VSS.
[2022-10-19] MEDS: Lactated Ringers 1,000 ML 100 ML IVCONT (17:49)
--- NOTE | 2022-10-19 19:57 | PC.NURSE ---
Patient is alert and oriented 3, VSS. Patient reports pain in her lower back has improved and is at tolerable level no 3/10 on 0-10 pain scale. Patient is able to make her needs know, call rincon within patient's reach.
[2022-10-19 20:00] LABS: Lactic Acid 2.3 mmol/L (0.5-2.0)
[2022-10-19 20:07] LABS: Alanine Aminotransferase 23 U/L (0-40); Albumin Level 3.9 g/dL (3.5-5.0); Alkaline Phosphatase 63 U/L (39-117); Anion Gap 14 (12-20); Aspartate Amino Transferase 15 U/L (5-37); Bilirubin Total 0.5 mg/dL (0.0-1.0); Blood Urea Nitrogen 29 mg/dL (9-16); Carbon Dioxide 21 mmol/L (22-29); Chloride 108 mmol/L (96-108); Estimated Glomerular Filt Rate 33; Glucose Random 180 mg/dL (60-115); Sodium 137 mmol/L (135-145)
--- NOTE | 2022-10-19 20:19 | PC.NURSE ---
Dr. richard notified about critical lactic acid level 2.3. No new orders at this time.
--- NOTE | 2022-10-19 20:25 | PC.NURSE ---
Dr. Patterson informed about critical level of Potassium 6.0, awaiting new orders.
[2022-10-19] MEDS: Apixaban 5 MG TABLET PO (20:27)
[2022-10-19] MEDS: Atorvastatin Calcium 10 MG TABLET PO (20:27)
[2022-10-19] MEDS: proGESTerone, Micronized 100 MG CAPSULE PO (20:57)
[2022-10-19 21:44] LABS: Reflex Lactate? Lactic Acid Added
[2022-10-19] MEDS: Insulin Regular, Human 100 UNIT/ML 3 ML VIAL IVPUSH (23:18)
[2022-10-19] MEDS: Calcium Gluconate/NaCl,Iso-Osm 2 GM/100 ML PLAST..BAG IV (23:25)
[2022-10-19] MEDS: Dextrose 50 % 25 GM/50 ML SYRINGE IVPUSH (23:25)
[2022-10-19] MEDS: 0.9 % Sodium Chloride Flush 3 ML SYRINGE IVFLUSH ×2 (23:25)
[2022-10-19] MEDS: Sodium Zirconium Cyclosilicate 10 GM POWD.PACK PO (23:25)
[2022-10-19 23:28] LABS: ~Lactic Acid-LAB USE ONLY 2.4 mmol/L (0.5-2.0)
--- NOTE | 2022-10-19 23:28 | PC.NURSE ---
Dr. Patterson notified about critical lactic level of 2.4. No new order at this time.
[2022-10-19] MEDS: Gabapentin 400 MG CAPSULE PO (23:43)
[2022-10-20 00:57] LABS: Reflex Lactate? 2 Y
[2022-10-20 01:29] VITALS: RESP 14
[2022-10-20] MEDS: Morphine Sulfate 4 MG/ML CARTRIDGE IVPUSH ×3 (01:29→20:38)
[2022-10-20] MEDS: ondansetron HCL 4 MG/2 ML VIAL IVPUSH (01:29)
[2022-10-20 01:41] LABS: ~Lactic Acid-LAB USE ONLY 1.8 mmol/L (0.5-2.0)
[2022-10-20] MEDS: Lactated Ringers 1,000 ML 100 ML IVCONT ×2 (04:42→17:03)
--- NOTE | 2022-10-20 04:55 | PC.NURSE ---
Patient reported L AC IV line is leaking, RN unable to flush IV line. IV line pulled out. New 22 G IV line placed in R hand.
[2022-10-20 06:07] LABS: Hematocrit 31.6 % (42.0-52.0); Hemoglobin 10.3 g/dl (14.0-18.0); Mean Corpuscular HGB Conc 32.6 g/dl (31.0-36.0); Mean Corpuscular Hemoglobin 31.6 pg (27.0-33.0); Mean Corpuscular Volume 96.9 fL (80.0-98.0); Mean Platelet Volume 10.8 fL (9.4-12.4); Platelet Count 317 X10*3/uL (160-400); Red Blood Count 3.26 X10*6/uL (4.60-5.80); Red Cell Distribution Width 13.4 % (11.0-16.0); White Blood Count 16.7 X10*3/uL (4.8-10.8)
[2022-10-20 07:28] LABS: Anion Gap 14 (12-20); Blood Urea Nitrogen 29 mg/dL (9-16); Carbon Dioxide 19 mmol/L (22-29); Chloride 110 mmol/L (96-108); Estimated Glomerular Filt Rate 38; Glucose Random 123 mg/dL (60-115); Potassium 6.1 mmol/L (3.3-5.1); Sodium 137 mmol/L (135-145)
[2022-10-20] MEDS: Apixaban 5 MG TABLET PO ×2 (08:11→20:36)
[2022-10-20] MEDS: Spironolactone 25 MG TABLET 100 MG PO (08:14)
[2022-10-20] MEDS: Metoprolol Succinate ER 50 MG TAB.ER.24H PO (08:14)
[2022-10-20 08:36] VITALS: BP 107/31; PULSE 60; O2SAT 97
[2022-10-20 08:45] VITALS: BP 107/54; PULSE 60; RESP 17; TEMP 36.3; O2SAT 94
[2022-10-20] MEDS: Sertraline HCL 50 MG TABLET PO (09:32)
[2022-10-20] MEDS: allopurinoL 300 MG TABLET PO (09:33)
[2022-10-20] MEDS: Sodium Polystyrene Sulfon/Sorb 15 GM/60 ML ORAL.SUSP 30 GM PO (09:34)
--- NOTE | 2022-10-20 09:34 | HO.PM.IMPN ---
Subjective Subjective Date of Service: 10/20/22 Interval History: f/u on back claude, renal failure and hyperkalemia interval history: back pain is better, Cr is better, potassium remains high at 6+ Review of Systems back pain is better no n/v Physical Exam Vital Signs: Vital Signs: Last Vital Signs Temp 97.3 F 10/20/22 08:45 Pulse 60 10/20/22 08:45 Resp 17 10/20/22 08:45 BP 107/54 L 10/20/22 08:45 Pulse Ox 94 10/20/22 08:45 O2 Del Method 10/20/22 08:45 BMI result Body Mass Index 38.5 Const: Other: General: AO X 3, no acute distress Resp: CTA bilateral CVS: S1,S2,RRR GI: +BS, NT, no distention Skin: No rash Neuro: motor grossly intact Psych: appropriate affect Objective Data Active Medications Acetaminophen (Acetaminophen 325 Mg Tablet) 650 mg PO Q6H PRN PRN Reason: Pain, Mild (Pain Scale 1-3) Allopurinol (Allopurinol 300 Mg Tablet) 300 mg PO DAILY [facility] Apixaban (Apixaban 5 Mg Tablet) 5 mg PO BID [facility] Last Admin: 10/20/22 08:11 Dose: 5 mg Documented By: GURJIT Atorvastatin Calcium (Atorvastatin Calcium 10 Mg Tablet) 10 mg PO BEDTIME [facility] Last Admin: 10/19/22 20:27 Dose: 10 mg Documented By: ELLIOT Cyclobenzaprine HCl (Cyclobenzaprine Hcl 10 Mg Tablet) 10 mg PO TID PRN PRN Reason: Muscle Spasm Last Admin: 10/19/22 23:42 Dose: 10 mg Documented By: ELLIOT Docusate Sodium (Docusate Sodium 100 Mg Capsule) 100 mg PO DAILY PRN PRN Reason: Constipation Gabapentin (Gabapentin 400 Mg Capsule) 400 mg PO BID PRN PRN Reason: Pain, Mild (Pain Scale 1-3) Last Admin: 10/19/22 23:43 Dose: 400 mg Documented By: ELLIOT Lactated Ringer's (Lr) 1,000 mls @ 100 mls/hr IVCONT .Q10H [facility] Last Admin: 10/20/22 04:42 Dose: 100 mls/hr Documented By: ELLIOT Metoprolol Succinate (Metoprolol Succinate Er 50 Mg Tab.Er.24h) 50 mg PO DAILY [facility]; Protocol Last Admin: 10/20/22 08:14 Dose: 50 mg Documented By: GURJIT Morphine Sulfate (Morphine Sulfate 4 Mg/Ml Cartridge) 4 mg IVPUSH Q6H PRN; Protocol PRN Reason: Pain, Severe (Pain Scale 7-10) Last Admin: 10/20/22 01:29 Dose: 4 mg Documented By: ELLIOT Non-Formulary Medication (Estradiol) 1 patch TOPICAL TUSA [facility] Non-Formulary Medication (Finasteride) 1 mg PO DAILY [facility] Ondansetron HCl (Ondansetron Hcl 4 Mg/2 Ml Vial) 4 mg IVPUSH Q8H PRN PRN Reason: Nausea and Vomiting Last Admin: 10/20/22 01:29 Dose: 4 mg Documented By: ELLIOT Pharmacy Consult (Consult Rx Perform Med Rec) 1 each MISCELLANE ONCE PRN PRN Reason: Consult order Progesterone (Progesterone, Micronized 100 Mg Capsule) 100 mg PO BEDTIME [facility] Last Admin: 10/19/22 20:57 Dose: 100 mg Documented By: ELLIOT Sertraline HCl (Sertraline Hcl 50 Mg Tablet) 50 mg PO DAILY [facility] Sodium Chloride (0.9 % Sodium Chloride Flush 3 Ml Syringe) 3 ml IVFLUSH QSARFT [facility] Last Admin: 10/19/22 23:25 Dose: 3 ml Documented By: ELLIOT Sodium Chloride (0.9 % Sodium Chloride Flush 3 Ml Syringe) [facility] Last Admin: 10/19/22 23:25 Dose: 3 ml Documented By: ELLIOT Spironolactone (Spironolactone 25 Mg Tablet) 100 mg PO DAILY [facility]; Protocol Last Admin: 10/20/22 08:14 Dose: 100 mg Documented By: GURJIT Labs 10/20/22 05:57 10/20/22 05:57 Labs: Laboratory Results - last 24 hr 10/19/22 10/19/22 10/19/22 12:42 12:42 12:42 MCV 98.5 H MCH 31.7 MCHC 32.2 RDW 13.5 Plt Count 296 MPV 10.6 Immature Gran % (Auto) 0.4 Neut % (Auto) 88.4 H Lymph % (Auto) 6.2 L [place] % (Auto) 2.3 Eos % (Auto) 2.5 Baso % (Auto) 0.2 Lymph # (Auto) 0.8 L [place] # (Auto) 0.3 Eos # (Auto) 0.3 Baso # (Auto) 0.0 Abs Immat Gran (auto) 0.05 H Absolute Neuts (auto) 11.1 H Absolute Nucleated RBC 0.000 Nucleated RBC % (auto) 0.0 Anion Gap 13 Estim Creat Clear Calc 55.6 Estimated GFR 36 Random Glucose 117 H Lactic Acid Lactic Acid F/U @ 2Hr Lactic Acid F/U @ 4Hr Calcium 9.7 Total Bilirubin AST ALT Alkaline Phosphatase Total Protein Albumin Urine Color Urine Appearance Urine pH Ur Specific [place] Urine Protein Urine Glucose (UA) Urine Ketones Urine Blood Urine Nitrite Ur Leukocyte Esterase Urine RBC Urine WBC Ur Squamous Epith Cells Urine Bacteria Hyaline Casts COVID-19 (LUIS ENRIQUE) Negative COVID-19 [employer] See Note 10/19/22 10/19/22 10/19/22 14:05 19:35 19:35 MCV MCH MCHC RDW Plt Count MPV Immature Gran % (Auto) Neut % (Auto) Lymph % (Auto) [place] % (Auto) Eos % (Auto) Baso % (Auto) Lymph # (Auto) [place] # (Auto) Eos # (Auto) Baso # (Auto) Abs Immat Gran (auto) Absolute Neuts (auto) Absolute Nucleated RBC Nucleated RBC % (auto) Anion Gap 14 Estim Creat Clear Calc 52.0 Estimated GFR 33 Random Glucose 180 H Lactic Acid 2.3 H* Lactic Acid F/U @ 2Hr Lactic Acid F/U @ 4Hr Calcium 10.0 Total Bilirubin 0.5 AST 15 ALT 23 Alkaline Phosphatase 63 Total Protein 7.0 Albumin 3.9 Urine Color Yellow Urine Appearance Clear Urine pH 5.5 Ur Specific [place] 1.020 Urine Protein Negative Urine Glucose (UA) Negative Urine Ketones Negative Urine Blood Negative Urine Nitrite Negative Ur Leukocyte Esterase Small (1+) H Urine RBC 0-2 Urine WBC 6-10 H Ur Squamous Epith Cells 0-2 Urine Bacteria Trace Hyaline Casts 3-5 COVID-19 (LUIS ENRIQUE) COVID-19 [employer] 10/19/22 10/20/22 10/20/22 22:52 01:17 05:57 MCV 96.9 MCH 31.6 MCHC 32.6 RDW 13.4 Plt Count 317 MPV 10.8 Immature Gran % (Auto) Neut % (Auto) Lymph % (Auto) [place] % (Auto) Eos % (Auto) Baso % (Auto) Lymph # (Auto) [place] # (Auto) Eos # (Auto) Baso # (Auto) Abs Immat Gran (auto) Absolute Neuts (auto) Absolute Nucleated RBC 0.000 Nucleated RBC % (auto) 0.0 Anion Gap Estim Creat Clear Calc Estimated GFR Random Glucose Lactic Acid Lactic Acid F/U @ 2Hr 2.4 H* Lactic Acid F/U @ 4Hr 1.8 Calcium Total Bilirubin AST ALT Alkaline Phosphatase Total Protein Albumin Urine Color Urine Appearance Urine pH Ur Specific [place] Urine Protein Urine Glucose (UA) Urine Ketones Urine Blood Urine Nitrite Ur Leukocyte Esterase Urine RBC Urine WBC Ur Squamous Epith Cells Urine Bacteria Hyaline Casts COVID-19 (LUIS ENRIQUE) COVID-19 [employer] 10/20/22 05:57 MCV MCH MCHC RDW Plt Count MPV Immature Gran % (Auto) Neut % (Auto) Lymph % (Auto) [place] % (Auto) Eos % (Auto) Baso % (Auto) Lymph # (Auto) [place] # (Auto) Eos # (Auto) Baso # (Auto) Abs Immat Gran (auto) Absolute Neuts (auto) Absolute Nucleated RBC Nucleated RBC % (auto) Anion Gap 14 Estim Creat Clear Calc 59.0 Estimated GFR 38 Random Glucose 123 H Lactic Acid Lactic Acid F/U @ 2Hr Lactic Acid F/U @ 4Hr Calcium 10.0 Total Bilirubin AST ALT Alkaline Phosphatase Total Protein Albumin Urine Color Urine Appearance Urine pH Ur Specific [place] Urine Protein Urine Glucose (UA) Urine Ketones Urine Blood Urine Nitrite Ur Leukocyte Esterase Urine RBC Urine WBC Ur Squamous Epith Cells Urine Bacteria Hyaline Casts COVID-19 (LUIS ENRIQUE) COVID-19 [employer] Assessment and Plan (1) Lumbar radiculopathy: Status: Acute (2) JUANY (acute kidney injury): Status: Acute (3) Acute hyperkalemia: Status: Acute Plan 66/m with recent unilateral nephrectomy for renal cell cancer presented with back pain acute on chronic and found to have JUANY and hyperkalemia Lumbar radiculopathy with chronic pain, pain is better after steroid and pain meds, Continue cyclobenzaprine JUANY on CKD 2, last Cr was 1.5, 1.9 on admission and now 1.7 so improving with IVF Hyperkalemia--likely realted to JUANY, given lokelm x 2 but went up. Will add Kayexlate and repeat and if persistent then nephrology eval Leukocytosis Patient WBC elevated at 12.5--> 16, reactive and steroid HTN Hold lisinopril due to JUANY Monitor BP BPH Continue finasteride Paroxysmal AFib Patient with implantable cardiac pacemaker Continue metoprolol, Eliquis Gout Continue allopurinol morbid obesity--weight loss advised Full Code Attending:?Dr. Rodriguez DVT Prophylaxis: On Eliquis Need for inaptient: treatment for hyperkalemia Time Spent With Patient Time: Total time managing care of this patient today ____ minutes. Quality Stroke Does the patient have a stroke diagnosis?: No VTE Prior VTE?: No VTE Risk Level:: Medical - moderate - high VTE Device Contraindication: Treatment Not Indicated VTE Drug Contraindication: N/A - Med Ordered
[2022-10-20] MEDS: 0.9 % Sodium Chloride Flush 3 ML SYRINGE IVFLUSH ×4 (09:35→15:42)
[2022-10-20] MEDS: oxyCODONE HCl Immed Release 5 MG TABLET PO ×3 (12:30→23:28)
[2022-10-20] MEDS: Cyclobenzaprine HCl 10 MG TABLET PO ×2 (12:30→23:29)
[2022-10-20 15:28] VITALS: BP 123/59; PULSE 53; RESP 17; TEMP 36.4; O2SAT 98
[2022-10-20 18:44] VITALS: BP 111/56; PULSE 56; RESP 18; TEMP 36.7; O2SAT 95
[2022-10-20] MEDS: Acetaminophen 325 MG TABLET 650 MG PO (20:36)
[2022-10-20] MEDS: Atorvastatin Calcium 10 MG TABLET PO (20:36)
[2022-10-20] MEDS: proGESTerone, Micronized 100 MG CAPSULE PO (20:37)
[2022-10-20] MEDS: Gabapentin 400 MG CAPSULE PO (20:37)
[2022-10-21] MEDS: HYDROmorphone HCl 1 MG/ML SYRINGE IVPUSH ×2 (00:14→06:13)
[2022-10-21] MEDS: Morphine Sulfate 4 MG/ML CARTRIDGE IVPUSH (03:13)
[2022-10-21] MEDS: 0.9 % Sodium Chloride Flush 3 ML SYRINGE IVFLUSH ×4 (03:15→16:42)
[2022-10-21 03:35] VITALS: BP 132/62; PULSE 54; RESP 18; TEMP 36.6; O2SAT 98
[2022-10-21] MEDS: oxyCODONE HCl Immed Release 5 MG TABLET PO (05:47)
[2022-10-21 06:31] LABS: Anion Gap 14 (12-20); Blood Urea Nitrogen 30 mg/dL (9-16); Calcium 9.7 mg/dL (8.4-10.2); Carbon Dioxide 22 mmol/L (22-29); Chloride 110 mmol/L (96-108); Creatinine Clr Calc Pharmacy 56.8; Estimated Glomerular Filt Rate 37; Glucose Random 99 mg/dL (60-115); Potassium 5.6 mmol/L (3.3-5.1); Sodium 140 mmol/L (135-145)
[2022-10-21 07:52] VITALS: BP 95/55; PULSE 55; RESP 18; TEMP 36.1; O2SAT 97
--- NOTE | 2022-10-21 08:07 | HO.PM.IMPN ---
Subjective Subjective Date of Service: 10/21/22 Interval History: f/u on back claude, renal failure and hyperkalemia interval history: Still c/o back pain, at lower back that is excruciating no urinary or stool incontinence Review of Systems back pain is better no n/v Physical Exam Vital Signs: Vital Signs: Last Vital Signs Temp 97.0 F 10/21/22 07:52 Pulse 55 10/21/22 07:52 Resp 18 10/21/22 07:52 BP 95/55 L 10/21/22 07:52 Pulse Ox 97 10/21/22 07:52 O2 Del Method 10/21/22 07:52 BMI result Body Mass Index 38.5 Const: Other: General: AO X 3, no acute distress Resp: CTA bilateral CVS: S1,S2,RRR GI: +BS, NT, no distention Skin: No rash Neuro: motor grossly intact, no weakness, no saddle anesthesia Psych: appropriate affect Objective Data Active Medications Acetaminophen (Acetaminophen 325 Mg Tablet) 650 mg PO Q6H PRN PRN Reason: Pain, Mild (Pain Scale 1-3) Last Admin: 10/20/22 20:36 Dose: 650 mg Documented By: GLEN Allopurinol (Allopurinol 300 Mg Tablet) 300 mg PO DAILY [facility] Last Admin: 10/20/22 09:33 Dose: 300 mg Documented By: MINO Apixaban (Apixaban 5 Mg Tablet) 5 mg PO BID [facility] Last Admin: 10/20/22 20:36 Dose: 5 mg Documented By: GLEN Atorvastatin Calcium (Atorvastatin Calcium 10 Mg Tablet) 10 mg PO BEDTIME [facility] Last Admin: 10/20/22 20:36 Dose: 10 mg Documented By: GLEN Cyclobenzaprine HCl (Cyclobenzaprine Hcl 10 Mg Tablet) 10 mg PO TID PRN PRN Reason: Muscle Spasm Last Admin: 10/20/22 23:29 Dose: 10 mg Documented By: GLEN Docusate Sodium (Docusate Sodium 100 Mg Capsule) 100 mg PO DAILY PRN PRN Reason: Constipation Gabapentin (Gabapentin 400 Mg Capsule) 400 mg PO BID PRN PRN Reason: Pain, Mild (Pain Scale 1-3) Last Admin: 10/20/22 20:37 Dose: 400 mg Documented By: GLEN Lactated Ringer's (Lr) 1,000 mls @ 100 mls/hr IVCONT .Q10H [facility] Last Infusion: 10/21/22 03:16 Dose: 0 mls/hr Documented By: GLEN Metoprolol Succinate (Metoprolol Succinate Er 50 Mg Tab.Er.24h) 50 mg PO DAILY [facility]; Protocol Last Admin: 10/20/22 08:14 Dose: 50 mg Documented By: GURJIT Morphine Sulfate (Morphine Sulfate 4 Mg/Ml Cartridge) 4 mg IVPUSH Q6H PRN; Protocol PRN Reason: Pain, Severe (Pain Scale 7-10) Last Admin: 10/21/22 03:13 Dose: 4 mg Documented By: GLEN Non-Formulary Medication (Estradiol) 1 patch TOPICAL TUSA [facility] Non-Formulary Medication (Finasteride) 1 mg PO DAILY [facility] Ondansetron HCl (Ondansetron Hcl 4 Mg/2 Ml Vial) 4 mg IVPUSH Q8H PRN PRN Reason: Nausea and Vomiting Last Admin: 10/20/22 01:29 Dose: 4 mg Documented By: ELLIOT Oxycodone HCl (Oxycodone Hcl Immed Release 5 Mg Tablet) 5 mg PO Q6H PRN PRN Reason: Pain, Severe (Pain Scale 7-10) Last Admin: 10/21/22 05:47 Dose: 5 mg Documented By: GLEN Pharmacy Consult (Consult Rx Perform Med Rec) 1 each MISCELLANE ONCE PRN PRN Reason: Consult order Progesterone (Progesterone, Micronized 100 Mg Capsule) 100 mg PO BEDTIME [facility] Last Admin: 10/20/22 20:37 Dose: 100 mg Documented By: GLEN Sertraline HCl (Sertraline Hcl 50 Mg Tablet) 50 mg PO DAILY [facility] Last Admin: 10/20/22 09:32 Dose: 50 mg Documented By: MINO Sodium Chloride (0.9 % Sodium Chloride Flush 3 Ml Syringe) 3 ml IVFLUSH [facility] Last Admin: 10/21/22 03:15 Dose: 3 ml Documented By: GLEN Sodium Chloride (0.9 % Sodium Chloride Flush 3 Ml Syringe) [facility] Last Admin: 10/21/22 03:15 Dose: 3 ml Documented By: GLEN Spironolactone (Spironolactone 25 Mg Tablet) 100 mg PO DAILY [facility]; Protocol Last Admin: 10/20/22 08:14 Dose: 100 mg Documented By: GURJIT Labs 10/20/22 05:57 10/21/22 06:09 Labs: Laboratory Results - last 24 hr 10/21/22 06:09 Anion Gap 14 Estim Creat Clear Calc 56.8 Estimated GFR 37 Random Glucose 99 Calcium 9.7 Microbiology Microbiology Results: Microbiology 10/19/22 Unknown Urine Culture - Final Urine clean catch - Urine olivier top Enterococcus faecalis Assessment and Plan (1) History of nephrectomy: Status: Acute (2) Hyperkalemia: Status: Acute (3) Lumbar radiculopathy: Status: Acute Plan 66/m with recent unilateral nephrectomy for renal cell cancer presented with back pain acute on chronic and found to have JUANY and hyperkalemia Lumbar radiculopathy with chronic pain, pain is better after steroid and pain meds, Continue cyclobenzaprine, add solumedrol. CT of back JUANY on CKD 2, last Cr was 1.5, 1.9 on admission and now 1.85 today, IVF Hyperkalemia--likely realted to JUANY, and Aldactone. Persistently highafter Lokelma and Kayexalate, give additional Lokelma, hold Aldactone Leukocytosis Patient WBC elevated at 12.5--> 16, reactive and steroid HTN--Hold Lisinopril and Aldacton, continue metoprolol BPH Continue finasteride Paroxysmal AFib--continue metoprolol and Eliquis Gout Continue allopurinol morbid obesity--weight loss advised Full Code DVT Prophylaxis: On Eliquis Need for inaptient: treatment for hyperkalemia and JUANY Time Spent With Patient Time: Total time managing care of this patient today ____ minutes. Quality Stroke Does the patient have a stroke diagnosis?: No VTE Prior VTE?: No VTE Risk Level:: Medical - moderate - high VTE Device Contraindication: Treatment Not Indicated VTE Drug Contraindication: N/A - Med Ordered
[2022-10-21] MEDS: allopurinoL 300 MG TABLET PO (08:12)
[2022-10-21] MEDS: Apixaban 5 MG TABLET PO ×2 (08:12→19:58)
[2022-10-21] MEDS: Sertraline HCL 50 MG TABLET PO (08:12)
[2022-10-21] MEDS: Sodium Zirconium Cyclosilicate 10 GM POWD.PACK PO ×2 (09:34→16:41)
[2022-10-21] MEDS: methylPREDNISolone Sod Succ 40 MG/ML VIAL IVPUSH ×2 (09:34→16:41)
--- NOTE | 2022-10-21 10:30 | P.CONNP_ITS ---
History of Present Illness Reason for Consult Consult date: 10/21/22 Chief Complaint Chief complaint: Back pain History of Present Illness Narrative: 66 year old patient with normal baseline kidney function and who recently underwent a left nephrectomy now with elevated serum creatinine and potassium. In summary he recently underwent a nephrectomy because of renal cell carcinoma presented with back pain and reports after the surgery not feeling well and having poor oral intake. He denies fever, chills, vomiting or diarrhea. In the emergency room patient was given ketorolac. Review of his vital signs showed hypotensive episodes with systolic blood pressure down to the 90s. Review of Systems Review of Systems 10 points ROS negative except for pertinent in HPI PMFSH Past Medical History Medical History Asthma Bladder cancer Cardiac pacemaker in situ (~2012) Depression Gout HTN (hypertension) Hx of migraines Hyperlipidemia LVH (left ventricular hypertrophy) Morbid obesity Obstructive sleep apnea On anticoagulant therapy On beta leon at home Osteoarthritis Paroxysmal atrial fibrillation (~2012) Sick sinus syndrome (~2012) Family History Family History Father CVD (cardiovascular disease) Bladder cancer Mother HTN (hypertension) Arthritis Surgical History Surgical History History of biopsy History of cardioversion History of carpal tunnel release History of permanent cardiac pacemaker placement Hx of transesophageal echocardiography (TRINIDAD) for monitoring Hx of transurethral resection of prostate Social History Social History Household Members: Significant Other Housing: Condominium Do you presently have visiting nurse or other home services: No Alcohol intake: current Alcohol intake frequency: does not drink Patient Tobacco Use Status: Former Tobacco user Quit Date: 1979 Tobacco use type: Cigarette Cigarette Packs Per Day: 1 Cigarettes Per Day: 20.0 Years Smoked: 7 Smoked in Last 30 Days: No Use of substances other than those prescribed or required for medical reasons: No Have you been hit, kicked, punched, or otherwise hurt by someone within the past year? If so, by whom?: No Do you feel safe in your current relationship?: No Is there a partner from a previous relationship who is making you feel unsafe now?: No Are you made to feel afraid or neglected: No Advance Directives: Yes Advance Directives Information Provided: No Advance Directives on File: No Advance Directives Date on File: 10/20/22 Do you have thoughts of harming others: None Do you have a plan to hurt others: No Plan Recently lost weight without trying: No Eating poorly because of decreased appetite: No Nutrition Risks: No Nutritional Risk Poor oral hygiene: No Meds Allergies Allergy/AdvReac Type Severity Reaction Status Date / Time Sulfa (Sulfonamide Allergy Unknown HIVES, Verified 09/29/22 10:13 Antibiotics) unknown [SULFA (SULFONAMIDE (childbood) ANTIBIOTICS)] Active Medications: Current Medications Acetaminophen (Acetaminophen 325 Mg Tablet) 650 mg PO Q6H PRN PRN Reason: Pain, Mild (Pain Scale 1-3) Last Admin: 10/20/22 20:36 Dose: 650 mg Allopurinol (Allopurinol 300 Mg Tablet) 300 mg PO DAILY [facility] Last Admin: 10/21/22 08:12 Dose: 300 mg Apixaban (Apixaban 5 Mg Tablet) 5 mg PO BID [facility] Last Admin: 10/21/22 08:12 Dose: 5 mg Atorvastatin Calcium (Atorvastatin Calcium 10 Mg Tablet) 10 mg PO BEDTIME [facility] Last Admin: 10/20/22 20:36 Dose: 10 mg Cyclobenzaprine HCl (Cyclobenzaprine Hcl 10 Mg Tablet) 10 mg PO TID PRN PRN Reason: Muscle Spasm Last Admin: 10/20/22 23:29 Dose: 10 mg Docusate Sodium (Docusate Sodium 100 Mg Capsule) 100 mg PO DAILY PRN PRN Reason: Constipation Gabapentin (Gabapentin 400 Mg Capsule) 400 mg PO BID PRN PRN Reason: Pain, Mild (Pain Scale 1-3) Last Admin: 10/20/22 20:37 Dose: 400 mg Hydromorphone HCl (Hydromorphone Hcl 0.5 Mg/0.5 Ml Syringe) 0.5 mg IVPUSH Q4H PRN; Protocol PRN Reason: Pain, Moderate (Pain Scale 4-6 Lactated Ringer's (Lr) 1,000 mls @ 100 mls/hr IVCONT .Q10H [facility] Last Infusion: 10/21/22 03:16 Dose: Infused Methylprednisolone Sodium Succinate (Methylprednisolone Sod Succ 40 Mg/Ml Vial) 40 mg IVPUSH Q8H [facility] Last Admin: 10/21/22 09:34 Dose: 40 mg Metoprolol Succinate (Metoprolol Succinate Er 50 Mg Tab.Er.24h) 50 mg PO DAILY [facility]; Protocol Last Admin: 10/21/22 09:33 Dose: Not Given Non-Formulary Medication (Estradiol) 1 patch TOPICAL TUSA [facility] Non-Formulary Medication (Finasteride) 1 mg PO DAILY [facility] Ondansetron HCl (Ondansetron Hcl 4 Mg/2 Ml Vial) 4 mg IVPUSH Q8H PRN PRN Reason: Nausea and Vomiting Last Admin: 10/20/22 01:29 Dose: 4 mg Oxycodone HCl (Oxycodone Hcl Immed Release 5 Mg Tablet) 5 mg PO Q6H PRN PRN Reason: Pain, Severe (Pain Scale 7-10) Last Admin: 10/21/22 05:47 Dose: 5 mg Pharmacy Consult (Consult Rx Perform Med Rec) 1 each MISCELLANE ONCE PRN PRN Reason: Consult order Progesterone (Progesterone, Micronized 100 Mg Capsule) 100 mg PO BEDTIME [facility] Last Admin: 10/20/22 20:37 Dose: 100 mg Sertraline HCl (Sertraline Hcl 50 Mg Tablet) 50 mg PO DAILY [facility] Last Admin: 10/21/22 08:12 Dose: 50 mg Sodium Chloride (0.9 % Sodium Chloride Flush 3 Ml Syringe) 3 ml IVFLUSH [facility] Last Admin: 10/21/22 08:16 Dose: Not Given Sodium Chloride (0.9 % Sodium Chloride Flush 3 Ml Syringe) 3 ml IVFLUSH [facility] Last Admin: 10/21/22 08:16 Dose: Not Given Sodium Zirconium Cyclosilicate (Sodium Zirconium Cyclosilicate 10 Gm Powd.Pack) 10 gm PO Q8H [facility] Stop: 10/23/22 00:16 Last Admin: 10/21/22 09:34 Dose: 10 gm Home Medications Medication Instructions Recorded Confirmed Last Taken Type finasteride 1 mg tablet 1 mg PO DAILY 03/02/22 10/19/22 Unknown History lisinopril 20 mg tablet 20 mg PO DAILY 03/02/22 10/19/22 09/14/22 History sertraline 100 mg tablet 50 mg PO DAILY 03/02/22 10/19/22 Unknown History estradiol 0.075 mg/24 hr 1 patch topical TUSA 08/17/22 10/19/22 Unknown History semiweekly transdermal patch semaglutide 0.25 mg or 0.5 mg (2 0.5 mg subcut TU 08/17/22 10/19/22 Unknown History mg/1.5 mL) subcutaneous pen injector (Ozempic) progesterone micronized 100 mg 1 cap PO BEDTIME 09/15/22 10/19/22 09/15/22 History capsule apixaban 5 mg tablet 5 mg PO BID 10/19/22 10/19/22 Unknown History cyclobenzaprine 10 mg tablet 10 mg PO TID PRN Muscle Spasm 10/19/22 10/19/22 Unknown History gabapentin 400 mg capsule 400 mg PO BID PRN Pain 10/19/22 10/19/22 Unknown History lidocaine-prilocaine 2.5 %-2.5 % 1 appl topical TID 10/19/22 10/19/22 Unknown History topical cream spironolactone 50 mg tablet 100 mg PO DAILY 10/19/22 10/19/22 Unknown History Physical Exam Vital Signs: Last Vital Signs Temp 97.0 F 10/21/22 07:52 Pulse 55 10/21/22 07:52 Resp 18 10/21/22 07:52 BP 95/55 L 10/21/22 07:52 Pulse Ox 97 10/21/22 07:52 O2 Del Method 10/21/22 07:52 BMI result Body Mass Index 38.5 Const General: comfortable and no acute distress HEENT Head: Yes normocephalic and Yes atraumatic Neck Neck: Yes supple Resp Auscultation: clear to auscultation bilaterally Cardio Heart sounds: S1 normal heart sound present and S2 normal heart sound present GI Palpation (GI): Soft to palpation and nontender Extrem General: Yes no pedal edema Results Lab Results 10/20/22 05:57 10/21/22 06:09 Lab results: Chemistry 10/19/22 10/19/22 10/20/22 12:42 19:35 05:57 Sodium 138 137 137 Potassium 5.8 H D 6.0 H* 6.1 H* Carbon Dioxide 21 L 21 L 19 L BUN 28 H 29 H 29 H Creatinine 1.89 H 2.02 H 1.78 H Calcium 9.7 10.0 10.0 10/21/22 06:09 Sodium 140 Potassium 5.6 H Carbon Dioxide 22 BUN 30 H Creatinine 1.85 H Calcium 9.7 Hematology 10/19/22 10/20/22 12:42 05:57 WBC 12.5 H 16.7 H Hgb 10.3 L 10.3 L Plt Count 296 317 Urinalysis 10/19/22 14:05 Urine Color Yellow Urine Appearance Clear Urine pH 5.5 Ur Specific [place] 1.020 Urine Protein Negative Urine Glucose (UA) Negative Urine Ketones Negative Urine Blood Negative Urine Nitrite Negative Ur Leukocyte Esterase Small (1+) H Urine RBC 0-2 Urine WBC 6-10 H Ur Squamous Epith Cells 0-2 Hyaline Casts 3-5 Assessment and Plan (1) JUANY (acute kidney injury): Status: Acute (2) Hyperkalemia: Status: Acute (3) History of nephrectomy: Status: Acute Plan JUANY due to compromised kidney perfusion and tubular stress recent NSAID administration recent left nephrectomy with reduce renal mass right kidney though should compensate with left nephrectomy urine sediment benign and no proteinuria will need to rule out obstructive uropathy if kidney function does not improve elevated serum potassium due to ACEi, NSAID and potassium sparing agent normal baseline kidney function REC Ann Marie IVF hold ACEi and spironolactone kidney US if no improvement avoid NSAID (ketrolac) follow kidney function and electrolytes Time Spent With Patient Time: Total time managing care of this patient today ____ minutes. Procedures Date of Service Date of Service: 10/21/22
[2022-10-21] MEDS: HYDROmorphone HCl 0.5 MG/0.5 ML SYRINGE IVPUSH ×2 (13:24→19:57)
[2022-10-21 15:26] VITALS: BP 111/58; PULSE 51; RESP 18; TEMP 36.3; O2SAT 96
[2022-10-21] MEDS: Lactated Ringers 1,000 ML 100 ML IVCONT (18:19)
[2022-10-21 19:51] VITALS: BP 138/64; PULSE 57; RESP 16; TEMP 36.4; O2SAT 96
[2022-10-21] MEDS: proGESTerone, Micronized 100 MG CAPSULE PO (19:57)
[2022-10-21] MEDS: Atorvastatin Calcium 10 MG TABLET PO (19:57)
--- NOTE | 2022-10-22 | ECG_ITS ---
Test Reason : chest pain Blood Pressure : / mmHG Vent. Rate : 084 BPM Atrial Rate : 060 BPM P-R Int : 186 ms QRS Dur : 094 ms QT Int : 370 ms P-R-T Axes : 000 017 067 degrees QTc Int : 437 ms Atrial-paced rhythm with frequent , and consecutive Premature ventricular complexes Abnormal ECG When compared with ECG of 19-OCT-2022 13:42, No significant change was found Referred By: Russel Rodriguez Electronically Signed By:FRANCIS IBARRA
[2022-10-22] MEDS: methylPREDNISolone Sod Succ 40 MG/ML VIAL IVPUSH ×3 (00:53→16:39)
[2022-10-22] MEDS: HYDROmorphone HCl 0.5 MG/0.5 ML SYRINGE IVPUSH ×2 (00:53→04:28)
[2022-10-22] MEDS: Sodium Zirconium Cyclosilicate 10 GM POWD.PACK PO ×3 (00:54→16:38)
[2022-10-22 03:12] VITALS: BP 139/63; PULSE 62; RESP 18; TEMP 36.1; O2SAT 98
[2022-10-22 06:15] LABS: Glucose, Whole Blood 165 mg/dL (60-115)
[2022-10-22] MEDS: diphenhydrAMINE HCL 25 MG CAPSULE 50 MG PO (06:37)
[2022-10-22] MEDS: Sertraline HCL 50 MG TABLET PO (07:53)
[2022-10-22] MEDS: Metoprolol Succinate ER 50 MG TAB.ER.24H PO (07:53)
[2022-10-22] MEDS: allopurinoL 300 MG TABLET PO (07:53)
[2022-10-22] MEDS: Apixaban 5 MG TABLET PO ×2 (07:53→20:51)
[2022-10-22] MEDS: 0.9 % Sodium Chloride Flush 3 ML SYRINGE IVFLUSH ×2 (07:54)
[2022-10-22 07:56] VITALS: BP 133/63; PULSE 67; RESP 17; TEMP 36.7; O2SAT 97
--- NOTE | 2022-10-22 09:18 | PM.PNNEP ---
Subjective Subjective Date of Service: 10/22/22 Interval history: seen and examined no complaints Physical Exam Vital Signs: Vital Signs: Last Vital Signs Temp 98.1 F 10/22/22 07:56 Pulse 67 10/22/22 07:56 Resp 17 10/22/22 07:56 BP 133/63 10/22/22 07:56 Pulse Ox 97 10/22/22 07:56 O2 Del Method 10/22/22 07:56 BMI result Body Mass Index 38.5 Const: General: comfortable and no acute distress HEENT: Head: Yes normocephalic and Yes atraumatic Neck: Neck: Yes supple Resp: Auscultation: clear to auscultation bilaterally Cardio: Heart sounds: S1 normal heart sound present and S2 normal heart sound present GI: Palpation (GI): Soft to palpation and nontender Extrem: General: Yes no pedal edema Objective Data Labs 10/20/22 05:57 10/21/22 06:09 Labs: Laboratory Results - last 24 hr 10/21/22 10/22/22 13:43 06:10 POC Glucose 165 H Ur Random Sodium 157.0 Microbiology Microbiology Results: Microbiology 10/19/22 Unknown Urine clean catch - Urine olivier top Urine Culture - Final Enterococcus faecalis Procedures Date of Service Date of Service: 10/22/22 Assessment & Plan Assessment and plan (1) JUANY (acute kidney injury): Status: Acute (2) Hyperkalemia: Status: Acute (3) History of nephrectomy: Status: Acute Plan JUANY due to compromised kidney perfusion and tubular stress recent NSAID administration recent left nephrectomy with reduce renal mass right kidney though should compensate with left nephrectomy [place] 157 urine sediment benign and no proteinuria will need to rule out obstructive uropathy if kidney function does not improve elevated serum potassium due to ACEi, NSAID and potassium sparing agent normal baseline kidney function REC continue IVF 0.9% 75 cc/hr hold ACEi and spironolactone kidney US if no improvement avoid NSAID (ketrolac) follow kidney function and electrolytes Time Spent With Patient Time: Total time managing care of this patient today ____ minutes. Progress Note: Quality Stroke Does the patient have a stroke diagnosis?: No
--- NOTE | 2022-10-22 09:55 | P.PNIM_ITS ---
Subjective Subjective Date of Service: 10/22/22 Physical Exam Vital Signs: Vital Signs: Last Vital Signs Temp 98.1 F 10/22/22 07:56 Pulse 67 10/22/22 07:56 Resp 17 10/22/22 07:56 BP 133/63 10/22/22 07:56 Pulse Ox 97 10/22/22 07:56 O2 Del Method 10/22/22 07:56 BMI result Body Mass Index 38.5 Objective Data Active Medications Acetaminophen (Acetaminophen 325 Mg Tablet) 650 mg PO Q6H PRN PRN Reason: Pain, Mild (Pain Scale 1-3) Last Admin: 10/20/22 20:36 Dose: 650 mg Documented By: GLEN Allopurinol (Allopurinol 300 Mg Tablet) 300 mg PO DAILY [facility] Last Admin: 10/22/22 07:53 Dose: 300 mg Documented By: MINO Apixaban (Apixaban 5 Mg Tablet) 5 mg PO BID [facility] Last Admin: 10/22/22 07:53 Dose: 5 mg Documented By: MINO Atorvastatin Calcium (Atorvastatin Calcium 10 Mg Tablet) 10 mg PO BEDTIME [facility] Last Admin: 10/21/22 19:57 Dose: 10 mg Documented By: GLEN Cyclobenzaprine HCl (Cyclobenzaprine Hcl 10 Mg Tablet) 10 mg PO TID PRN PRN Reason: Muscle Spasm Last Admin: 10/20/22 23:29 Dose: 10 mg Documented By: GLEN Docusate Sodium (Docusate Sodium 100 Mg Capsule) 100 mg PO DAILY PRN PRN Reason: Constipation Gabapentin (Gabapentin 400 Mg Capsule) 400 mg PO BID PRN PRN Reason: Pain, Mild (Pain Scale 1-3) Last Admin: 10/20/22 20:37 Dose: 400 mg Documented By: GLEN Hydromorphone HCl (Hydromorphone Hcl 0.5 Mg/0.5 Ml Syringe) 0.5 mg IVPUSH Q4H PRN; Protocol PRN Reason: Pain, Moderate (Pain Scale 4-6 Last Admin: 10/22/22 04:28 Dose: 0.5 mg Documented By: GLEN Sodium Chloride (Ns) 1,000 mls @ 75 mls/hr IVCONT .[id number] [facility] Methylprednisolone Sodium Succinate (Methylprednisolone Sod Succ 40 Mg/Ml Vial) 40 mg IVPUSH Q8H [facility] Last Admin: 10/22/22 07:53 Dose: 40 mg Documented By: MINO Metoprolol Succinate (Metoprolol Succinate Er 50 Mg Tab.Er.24h) 50 mg PO DAILY [facility]; Protocol Last Admin: 10/22/22 07:53 Dose: 50 mg Documented By: MINO Non-Formulary Medication (Estradiol) 1 patch TOPICAL TUSA [facility] Non-Formulary Medication (Finasteride) 1 mg PO DAILY [facility] Ondansetron HCl (Ondansetron Hcl 4 Mg/2 Ml Vial) 4 mg IVPUSH Q8H PRN PRN Reason: Nausea and Vomiting Last Admin: 10/20/22 01:29 Dose: 4 mg Documented By: ELLIOT Oxycodone HCl (Oxycodone Hcl Immed Release 5 Mg Tablet) 5 mg PO Q6H PRN PRN Reason: Pain, Severe (Pain Scale 7-10) Last Admin: 10/21/22 05:47 Dose: 5 mg Documented By: GLEN Pharmacy Consult (Consult Rx Perform Med Rec) 1 each MISCELLANE ONCE PRN PRN Reason: Consult order Progesterone (Progesterone, Micronized 100 Mg Capsule) 100 mg PO BEDTIME [facility] Last Admin: 10/21/22 19:57 Dose: 100 mg Documented By: GLEN Sertraline HCl (Sertraline Hcl 50 Mg Tablet) 50 mg PO DAILY [facility] Last Admin: 10/22/22 07:53 Dose: 50 mg Documented By: MINO Sodium Chloride (0.9 % Sodium Chloride Flush 3 Ml Syringe) [facility] Last Admin: 10/22/22 07:54 Dose: 3 ml Documented By: MINO Sodium Chloride (0.9 % Sodium Chloride Flush 3 Ml Syringe) 3 ml IVFLUSH [facility] Last Admin: 10/22/22 07:54 Dose: 3 ml Documented By: MINO Sodium Zirconium Cyclosilicate (Sodium Zirconium Cyclosilicate 10 Gm Powd.Pack) 10 gm PO Q8H [facility] Stop: 10/23/22 00:16 Last Admin: 10/22/22 07:54 Dose: 10 gm Documented By: HO.[email or web address] Labs 10/20/22 05:57 10/21/22 06:09 Labs: Laboratory Results - last 24 hr 10/21/22 10/22/22 13:43 06:10 POC Glucose 165 H Ur Random Sodium 157.0 Microbiology Microbiology Results: Microbiology 10/19/22 Unknown Urine Culture - Final Urine clean catch - Urine olivier top Enterococcus faecalis Assessment and Plan (1) History of nephrectomy: Status: Acute (2) Hyperkalemia: Status: Acute (3) Lumbar radiculopathy: Status: Acute Plan 66/m with recent unilateral nephrectomy for renal cell cancer presented with back pain acute on chronic and found to have JUANY and hyperkalemia Lumbar radiculopathy with chronic pain, pain is better after steroid and pain meds, Continue cyclobenzaprine, add solumedrol. CT of back show multilevel degenerative disease, retroperitoneal lymph nodes. Overall pain is better but now with chest pain. Dilaudid for pain Chest pain--ECG, JUANY on CKD 2, last Cr was 1.5, 1.9 on admission and now 1.85, IVF and repeat labs tomorow Hyperkalemia--likely realted to JUANY, and Aldactone. Persistently highafter Lokelma and Kayexalate, give additional Lokelma, hold Aldactone Leukocytosis Patient WBC elevated at 12.5--> 16, reactive and steroid HTN--Hold Lisinopril and Aldacton, continue metoprolol BPH Continue finasteride Paroxysmal AFib--continue metoprolol and Eliquis Gout Continue allopurinol morbid obesity--weight loss advised Retroperitoneal Lymph nodes--concerning for malignancy--will get oncology eval tomorrow Full Code DVT Prophylaxis: On Eliquis Need for inaptient: treatment for hyperkalemia and JUANY Time Spent With Patient Time: Total time managing care of this patient today ____ minutes. Quality Stroke Does the patient have a stroke diagnosis?: No VTE Prior VTE?: No VTE Risk Level:: Medical - moderate - high VTE Device Contraindication: Treatment Not Indicated VTE Drug Contraindication: N/A - Med Ordered
[2022-10-22] MEDS: 0.9 % Sodium Chloride 1,000 ML 75 ML IVCONT (10:06)
[2022-10-22 10:39] LABS: Anion Gap 16 (12-20); Blood Urea Nitrogen 30 mg/dL (9-16); Calcium 10.1 mg/dL (8.4-10.2); Carbon Dioxide 21 mmol/L (22-29); Chloride 107 mmol/L (96-108); Creatinine Clr Calc Pharmacy 70.1; Estimated Glomerular Filt Rate 47; Glucose Random 184 mg/dL (60-115); Potassium 4.8 mmol/L (3.3-5.1); Sodium 139 mmol/L (135-145)
[2022-10-22] MEDS: Docusate Sodium 100 MG CAPSULE PO (14:37)
[2022-10-22 16:19] VITALS: BP 122/56; PULSE 62; RESP 18; TEMP 36.5; O2SAT 97
[2022-10-22 20:18] VITALS: BP 133/66; PULSE 56; RESP 18; TEMP 36.2; O2SAT 99
[2022-10-22] MEDS: proGESTerone, Micronized 100 MG CAPSULE PO (20:50)
[2022-10-22] MEDS: Atorvastatin Calcium 10 MG TABLET PO (20:51)
[2022-10-23] MEDS: 0.9 % Sodium Chloride 1,000 ML 75 ML IVCONT (00:05)
[2022-10-23] MEDS: Sodium Zirconium Cyclosilicate 10 GM POWD.PACK PO (00:06)
[2022-10-23] MEDS: 0.9 % Sodium Chloride Flush 3 ML SYRINGE IVFLUSH ×2 (00:06→00:07)
[2022-10-23] MEDS: oxyCODONE HCl Immed Release 5 MG TABLET PO ×2 (00:11→06:45)
[2022-10-23] MEDS: Acetaminophen 325 MG TABLET 650 MG PO (00:13)
[2022-10-23] MEDS: methylPREDNISolone Sod Succ 40 MG/ML VIAL IVPUSH ×2 (00:14→08:59)
[2022-10-23] MEDS: HYDROmorphone HCl 0.5 MG/0.5 ML SYRINGE IVPUSH (01:38)
[2022-10-23 03:30] VITALS: BP 168/74; PULSE 57; RESP 18; TEMP 36.4; O2SAT 95
[2022-10-23 07:20] VITALS: BP 125/59; PULSE 59; RESP 16; TEMP 36.5; O2SAT 96
[2022-10-23] MEDS: Metoprolol Succinate ER 50 MG TAB.ER.24H PO (08:57)
[2022-10-23] MEDS: allopurinoL 300 MG TABLET PO (08:58)
[2022-10-23] MEDS: Gabapentin 400 MG CAPSULE PO (08:58)
[2022-10-23] MEDS: Apixaban 5 MG TABLET PO (08:58)
[2022-10-23] MEDS: Cyclobenzaprine HCl 10 MG TABLET PO (08:58)
[2022-10-23] MEDS: Sertraline HCL 50 MG TABLET PO (08:59)
--- NOTE | 2022-10-23 09:24 | PM.PNNEP ---
Subjective Subjective Date of Service: 10/23/22 Interval history: seen and examined no complaints Physical Exam Vital Signs: Vital Signs: Last Vital Signs Temp 97.7 F 10/23/22 07:20 Pulse 59 10/23/22 07:20 Resp 16 10/23/22 07:20 BP 125/59 L 10/23/22 07:20 Pulse Ox 96 10/23/22 07:20 O2 Del Method 10/23/22 07:20 BMI result Body Mass Index 38.5 Const: General: comfortable and no acute distress HEENT: Head: Yes normocephalic and Yes atraumatic Neck: Neck: Yes supple Resp: Auscultation: clear to auscultation bilaterally Cardio: Heart sounds: S1 normal heart sound present and S2 normal heart sound present GI: Palpation (GI): Soft to palpation and nontender Extrem: General: Yes no pedal edema Objective Data Labs 10/20/22 05:57 10/22/22 10:13 Labs: Laboratory Results - last 24 hr 10/22/22 10:13 Sodium 139 Potassium 4.8 Chloride 107 Carbon Dioxide 21 L Anion Gap 16 BUN 30 H Creatinine 1.50 H Estim Creat Clear Calc 70.1 Estimated GFR 47 Random Glucose 184 H Calcium 10.1 Microbiology Microbiology Results: Microbiology 10/19/22 Unknown Urine clean catch - Urine olivier top Urine Culture - Final Enterococcus faecalis Procedures Date of Service Date of Service: 10/23/22 Assessment & Plan Assessment and plan (1) JUANY (acute kidney injury): Status: Acute (2) Hyperkalemia: Status: Acute (3) History of nephrectomy: Status: Acute Plan JUANY due to compromised kidney perfusion and tubular stress recent NSAID administration recent left nephrectomy with reduce renal mass right kidney though should compensate with left nephrectomy [place] 157 urine sediment benign and no proteinuria will need to rule out obstructive uropathy if kidney function does not improve elevated serum potassium due to ACEi, NSAID and potassium sparing agent normal baseline kidney function REC hold ACEi and spironolactone kidney US if no improvement avoid NSAID (ketrolac) DC planning Time Spent With Patient Time: Total time managing care of this patient today ____ minutes. Progress Note: Quality Stroke Does the patient have a stroke diagnosis?: No
--- NOTE | 2022-10-23 09:51 | PM.DS ---
DS: Providers Provider Date of Service: 10/23/22 Date of admission: 10/19/22 19:04 Primary care physician: Shivam Rachel PA-C Consults: 10/20/22 11:08 Consult to Nephrology Routine Consulting Provider: Tito Desir Reason for consultation: JUANY, hyperkalemia Has provider been notified: Yes DS: Diagnosis Discharge Diagnosis (1) JUANY (acute kidney injury): Status: Acute (2) Hyperkalemia: Status: Acute (3) History of nephrectomy: Status: Acute DS: Summary Hospital Course Hospital Course: Attending physician on admission: [facility] Chief Complaint: Lower back pain Pt is a 66-year-old assigned male at on hormone replacement therapy with a PMH significant for?renal cancer with recent left nephrectomy and orchiectomy, asthma, bladder cancer, paroxysmal AFib, sick sinus syndrome with cardiac pacemaker in-situ, HTN, HLD, depression, gout, morbid obesity who presents to the ED with?lower back pain.? Patient has chronic back pain, however has been experiencing severe lower back pain the past 3 days.? Patient denies any trauma to the area, heavy lifting, excessive movement.? In the ED patient was treated with Toradol to little effect, then treated with IV steroids, cyclobenzaprine, and hydromorphone which helped. Incidental findings on labs showed an elevated WBC of 12.5, hyper kalemia of 5.8, and elevated creatinine of 1.89 (creatinine of 1.5 one week ago at [facility]).? Of note, patient had a left nephrectomy last week at [facility] due to a cancers growth on her left kidney.? [place] removed 2 days ago? Patient denies fever, chills, vomiting.? Mild chronic nausea, no worse than before.? Mild abdominal pain at the incision site. Patient also states she has a history of hyperkalemia, most recently 3 months ago.? PCP told her to stop eating daily bananas, repeat labs were WNL.? Patient then presumed daily banana along with a multivitamin.? Patient denies chest pain/pressure, palpitations.? Denies shortness of breath. In the ED patient was afebrile with slightly low BP of 117/42. Labs were significant for leukocytosis of 12.5, H&H of 10.3/32.0, hyperkalemia of 5.8, chloride of 110, creatinine elevated at 1.89.? UA negative for UT. CXR showed no acute cardiopulmonary process. EKG demonstrated atrial paced rhythm with no evidence of ST elevations or depressions. Pt was treated with ketorolac, cyclobenzaprine, dexamethasone hydromorphone, lokelma, insulin, and dextrose. Pt will be admitted to the hospital for treatment of hyperkalemia, JUANY and evaluation of leukocytosis. Hospital course: Lumbar radiculopathy? with chronic pain, with acute exacerbation. CT of back show multilevel degenerative disease, retroperitoneal lymph nodes. Treated with pain meds and steroid and pain is much better. Will discharge with oxycodone Chest pain--ECG, no acuet ischemic changes JUANY on CKD 2, last Cr was 1.5, 1.9 and now 1.5 which around baseline, treated with IVF, held Lisinopril and aldactone but will restart Lisinpril and will follow up with Nephrology on outpatient baiss Hyperkalemia--likely realted to JUANY,? and Aldactone. Treated with Lokelma, Kayexlate. Potassium is better, will stop Aldactone Leukocytosis Patient WBC elevated at 12.5--> 16, reactive and steroid HTN--Stopping Aldactone permanently due to hyperkalemia, continue Lisinorpril and and Metoprolol BPH Continue finasteride Paroxysmal AFib--continue metoprolol and Eliquis Gout Continue allopurinol morbid obesity--weight loss advised Retroperitoneal Lymph nodes--Patient said he has an appointment coming with oncologist and has had PET scan done at outside facility and thereofore will follow up with them, he's aware of lymph nodes and will share with oncologist Time Spent with Patient Time attestation: Total time managing care of this patient today ____ minutes. Discharge coordination time: Greater than 30 minutes Quality: Safe Use of Opioids Does Pt have an Active Cancer Diagnosis on the Problem List?: No Quality: Stroke Does the patient have a stroke diagnosis?: No Physical Exam Vital Signs: Vital Signs: Last Vital Signs Temp 97.7 F 10/23/22 07:20 Pulse 59 10/23/22 07:20 Resp 16 10/23/22 07:20 BP 125/59 L 10/23/22 07:20 Pulse Ox 96 10/23/22 07:20 O2 Del Method 10/23/22 07:20 BMI result Body Mass Index 38.5 DS: Data Data Completed and Pending Labs on day of discharge: Laboratory Results - last 24 hr 10/22/22 10:13 Sodium 139 Potassium 4.8 Chloride 107 Carbon Dioxide 21 L Anion Gap 16 BUN 30 H Creatinine 1.50 H Estim Creat Clear Calc 70.1 Estimated GFR 47 Random Glucose 184 H Calcium 10.1 Discharge Plan Discharge Anticipated Discharge Date/Time: 10/23/22 09:37 Patient Disposition: Home, Self-Care Discharge Diagnosis: back pain, JUANY, hyperkalemia Referrals: Shivam Roy PA-C [Primary Care Provider] - 5 days Discharge Medications: New oxycodone 5 mg tablet 5 mg PO Q6H PRN (Reason: pain (scale score 7-10)) Qty: 14 0RF Rx Instructions: Partial Fill upon patient request. Continued allopurinol 300 mg tablet 300 mg PO DAILY Qty: 90 1RF metoprolol succinate 50 mg tablet extended release 24 hr 50 mg PO DAILY Qty: 90 3RF simvastatin 10 mg tablet 10 mg PO BEDTIME Qty: 90 0RF lidocaine-prilocaine 2.5-2.5 % cream 1 appl topical TID cyclobenzaprine 10 mg tablet 10 mg PO TID PRN (Reason: Muscle Spasm) gabapentin 400 mg capsule 400 mg PO BID PRN (Reason: Pain) apixaban 5 mg tablet 5 mg PO BID progesterone micronized 100 mg capsule 1 cap PO BEDTIME sertraline 100 mg tablet 50 mg PO DAILY estradiol 0.075 mg/24 hr patch semiweekly 1 patch topical TUSA Ozempic 0.25 mg or 0.5 mg(2 mg/1.5 mL) pen injector 0.5 mg subcut TU lisinopril 20 mg tablet 20 mg PO DAILY finasteride 1 mg tablet 1 mg PO DAILY Discontinued spironolactone 50 mg tablet 100 mg PO DAILY Discharge Orders: Discharge Order (Routine); Ordered 10/23/22 Ordered By: Russel Rodriguez Diet: Advance to usual diet Activity on Discharge: As tolerated Stand Alone Forms: Patient Portal Discharge page Care Plan Goals: full recovery from back pain Health Concerns: Back pain kidney failure hyperkalemia Lymph node in stomach Plan of Treatment: follow up with oncologist as previously plan oxycodone for pain follow up with your [facility] care doctor do not take aldactone again Assessment: as above Patient Instructions: Lumbar Radiculopathy (ED) Discharge Date/Time: 10/23/22 12:15
--- NOTE | 2022-10-23 11:00 | MHC.CM.PN ---
Addendum entered by Mana Lindquist 10/23/22 12:05: PT WILL DC HOME TODAY VIA [facility] Original Note: PT REPORTS SHE LIVES WITH HER AND IS INDEPENDENT WITH CARE SHE HAS A CPAP FOR DME AND NO HOME SERVICES PT REPORTS HER IS HER HCP, COPY REQUESTED SHE IS COVID VAX AND BOOSTED PCP: MARIBEL HODGES IN [place] IMM DELIVERED CURRENT DC PLAN IS HOME WITH NO SERVICES VS [facility]FT TO TRANSPORT
== END 2022-10-23 12:15 | disposition home or self-care (01) | DRG 684 ==
LOC: HO.ED 16:52 → HO.EDOVER 19:10 → HO.S3 10-20 05:54
PROVIDERS: Internal Medicine Nephrology; Student in an Organized Health Care Education/Training Program; Admitting Provider Student in an Organized Health Care Education/Training Program; Emergency Provider Emergency Medicine; PCP Student in an Organized Health Care Education/Training Program; Visit Provider Internal Medicine
DX: N17.9 Acute kidney failure, unspecified (principal); I12.9 Hypertensive chronic kidney disease with stage 1 through stage 4 chronic kidney disease, or unspecified chronic kidney disease; E87.5 Hyperkalemia; I48.0 Paroxysmal atrial fibrillation; M10.9 Gout, unspecified; M54.16 Radiculopathy, lumbar region; F64.0 Transsexualism; N18.2 Chronic kidney disease, stage 2 (mild); I49.5 Sick sinus syndrome; N40.0 Benign prostatic hyperplasia without lower urinary tract symptoms; D72.829 Elevated white blood cell count, unspecified; G89.29 Other chronic pain; Z20.822 Contact with and (suspected) exposure to COVID-19; E66.01 Morbid (severe) obesity due to excess calories; T39.395A Adverse effect of other nonsteroidal anti-inflammatory drugs [NSAID], initial encounter; Z68.38 Body mass index [BMI] 38.0-38.9, adult; Z90.5 Acquired absence of kidney; Z95.0 Presence of cardiac pacemaker; Z87.891 Personal history of nicotine dependence; Z85.51 Personal history of malignant neoplasm of bladder; Z85.528 Personal history of other malignant neoplasm of kidney; Z88.2 Allergy status to sulfonamides; Z79.890 Hormone replacement therapy; Z79.899 Other long term (current) drug therapy
CPT/HCPCS: 36415; 71045; 72131; 80048; 80053; 81001; 82947; 83605; 84300; 85025; 85027; 87086; 87088; 87186; 87635; 93005; 94640; 99285; J0611; J1100; J1170; J1885; J2270; J2405; J2920

== ENCOUNTER → 2022-10-24 14:08 | Outpatient (BNVA) | payer MEDICARE, SELFPAY | PROVIDERS: PCP Student in an Organized Health Care Education/Training Program; Referring Provider Student in an Organized Health Care Education/Training Program; Visit Provider Internal Medicine Cardiovascular Disease | DX: Z13.89 Encounter for screening for other disorder (principal) ==